=== PATIENT | female | born 1980 | race Caucasian/White ===

== ENCOUNTER 2016-12-28 18:00 | Emergency (ER) | payer OTHER ==
[~2016-12-28] VITALS: Ht 152.4 cm; Wt 95.4 kg
[~2016-12-28 18:00] MED LIST: ABL5 PO; ALPR-385 PO; CIPR-255 PO; CRY28 PO; IBUP-1050 PO; LAMO150T32 PO; NRN100 PO; ZOLP10TA PO
[2016-12-28 18:13] VITALS: TEMP 36.9; Ht 152.4 cm; Wt 95.4 kg
[2016-12-28 18:46] VITALS: O2SAT 96
[2016-12-28] MEDS ORDERED: ONDANSETRON INJ 2 MG/ML 2 ML VIAL IV STA (18:49)
[2016-12-28 18:59] LABS: BASO % 0.2 %; BASO ABS # 0.02 K/uL (0-0.2); COMPLETE YES; EOS % 2.3 %; HEMATOCRIT 43.8 % (37-47); IG% 0.1 %; LYMPH % 24.6 %; LYMPH ABS # 2.73 K/uL (1.2-3.4); MEAN CORPUSCULAR HEMOGLOBIN 32.5 pg (25-34); MEAN CORPUSCULAR HGB CONC 36.5 g/dl (32-36); MEAN PLATELET VOLUME 10.9 fL (7.4-10.4); MONO % 7.3 %; NEUT % 65.5 %; PLATELET COUNT 352 K/uL (130-400); RED BLOOD COUNT 4.92 M/uL (4.2-5.4); WHITE BLOOD COUNT 11.08 K/uL (4.8-10.8)
[2016-12-28] MEDS ORDERED: FENTANYL CITRATE INJ 50 MCG/1 ML 2 ML VIAL IV ONE (19:00)
[2016-12-28] MEDS ORDERED: LITH150C6 PO (19:04)
[2016-12-28 19:08] LABS: INR 0.9 (0.9-1.1); PARTIAL THROMBOPLASTIN RATIO 1.2
[2016-12-28 19:11] LABS: ALT/SGPT 25 U/L (12-78); AST/SGOT 17 U/L (15-37); BLOOD UREA NITROGEN 10 mg/dl (7-18); BUN/CREATININE RATIO 14.5 (10-20); CALCIUM 9.3 mg/dl (8.5-10.1); CARBON DIOXIDE 26 mmol/L (21-32); CHLORIDE 105 mmol/L (98-107); CREATININE 0.72 mg/dl (0.60-1.20); GLUCOSE 83 mg/dl (70-99); SODIUM 140 mmol/L (136-145)
[2016-12-28 19:14] LABS: ALKALINE PHOSPHATASE 72 U/L (45-117)
--- NOTE | 2016-12-28 19:32 | DIAGNOSTIC IMAGING REPORT ---
CT HEAD WITHOUT CONTRAST (CT) CLINICAL HISTORY: Change in mental status SUSPECTED STROKE COMPARISON STUDY: 04/27/2016 TECHNIQUE: Axial CT of the brain is performed from the vertex to the skull base. IV contrast was not administered for this examination. CT DOSE: 537.48 mGy.cm FINDINGS: No intra or extra-axial mass lesions are visualized. There is no CT evidence of acute cortical infarction. There is no evidence of midline shift. There is no acute hemorrhage. No calvarial fractures are visualized. There is no evidence of pathologic ventricular dilatation. There is moderate mucosal thickening/fluid in the left sphenoid. Multiple ethmoid air cells are opacified. There is bilateral maxilla sinus mucosal disease. There is frontal sinus mucosal thickening/fluid. IMPRESSION: 1. Pansinus disease 2. No acute intracranial findings. Electronically signed by: Marcello Rodrigues M.D. 12/28/2016 7:31 PM Dictated Date/Time: 12/28/2016 7:29 PM
[2016-12-28 20:09] LABS: URINE APPEARANCE CLEAR (CLEAR); URINE BILIRUBIN NEG (NEG); URINE COLOR YELLOW; URINE EPITHELIAL CELL AUTO >30 /lpf (0-5); URINE NITRITE NEG (NEG); URINE PH 7.5 (4.5-7.5); URINE SPECIFIC GRAVITY 1.012 (1.000-1.030); UROBILINOGEN NEG (NEG)
[2016-12-28 20:15] LABS: MANUAL MICROSCOPIC REQUIRED? NO; REVIEW REQ? NO
[2016-12-28] MEDS ORDERED: DOXYCYCLINE HYCLATE 100 MG CAP PO ONE (20:15)
[2016-12-28] MEDS ORDERED: DOXY100C2 PO (20:17)
[2016-12-28 20:33] LABS: BENZODIAZEPINE, URINE NEG (NEG); COCAINE,URINE NEG (NEG); PHENCYCLIDINE, URINE NEG (NEG)
[2016-12-28 20:41] VITALS: BP 103/56; PULSE 62; O2SAT 98
--- NOTE | 2016-12-28 22:17 | EMERGENCY ROOM VISIT NOTE ---
History Report prepared by Sauloibpankaj: Alba Avalos Under the Supervision of: Dr. Keshawn Schmidt M.D. First contact with patient: 18:38 Chief Complaint: SEIZURE Stated Complaint: HAD SEIZURE, ARM FEELS LIKE IT HAS WEIGHT ON IT History of Present Illness The patient is a 36 year old female who presents to the Emergency Room with complaints of a seizure that occurred tonight about an hour ago. The patient has a history of epileptic seizures and pseudo seizures. Her last seizure prior to today was 3 months ago. Per patient's significant other, the patient was sitting up in bed and started complaining of seeing spots in her eyes and felt like she was about to have a seizure. She laid down and shortly after started seizing. Her significant other notes that she was shaking in her bed and convulsing. Her seizure-like activity seemed to resolve after about 5 minutes. The patient had an episode of vomiting after the seizure. She was very confused afterwards and per significant other, still currently seems sightly out of it. The patient reports that she was slightly incontinent of urine. Currently, she complains of a headache, which is typical of how she feels after her seizures. She also complains of left arm heaviness. Her fianc talk to her mother who is a nurse who recommended she come here to evaluate for possible stroke because of her left arm symptoms. The patient is on Lamictal and [place] and has been compliant with her medications. She has not been sick recently. There is no chance of . Denies numbness or other complaints. She does not drink alcohol or use illicit drugs. Source of History: patient, spouse/significant other Onset: 1 hour ago Position: other (global) Quality: other (seizure) Timing: other (episode) Associated Symptoms: + headache, + vomiting, No numbness Note: Other symptoms: left arm heaviness, incontinence of urine, confusion Review of Systems See HPI for pertinent positives & negatives. A total of 10 systems reviewed and were otherwise negative. Past Medical & Surgical Medical Problems: (1) Altered mental status (2) Calculus of kidney and ureter (3) Endometriosis (4) Fracture of left ulna (5) Fracture of left ulna (6) Mantoux: positive (7) Methicillin resistant Staphylococcus aureus infection (8) Migraine (9) Neck pain (10) s/p (11) s/p colonoscopy (12) s/p laparoscopy (13) s/p tonsillectomy (14) Seizure (15) Seizure disorder (16) Seizures (17) Seizures (18) Sinusitis (19) Sphenoid sinusitis (20) Suicidal ideation (21) Syncope (22) Temporomandibular joint disorder (23) Tobacco dependence (24) Tobacco user Family History Diabetes mellitus GRANDFATHER (maternal) GRANDFATHER (paternal) GRANDMOTHER (maternal) GRANDMOTHER (paternal) FH: breast cancer Aunt (maternal) Aunt (paternal) Hypertension GRANDMOTHER (maternal) Social History Smoking Status: Current Every Day Smoker Alcohol Use: occasionally Drug Use: marijuana Marital Status: in relationship Housing Status: lives with family Occupation Status: disabled Current/Historical Medications Scheduled Doxycycline Hyclate (Vibramycin), 100 MG PO BID Ethinyl Estradiol/Norgestrel (Cryselle-28), 1 TAB PO DAILY Gabapentin (Gabapentin), 300 MG PO TID Scheduled PRN Ibuprofen (Advil), 200-600 MG PO Q4H PRN for Pain [place] Carbonate ([place] Carbonate), 150 MG PO for HS Zolpidem Tartrate (Ambien), 10 MG PO HS PRN for Sleep Allergies Coded Allergies: Clindamycin (Unverified Allergy, Severe, HIVES/TONGUE SWELLING, 10/25/16) Penicillins (Verified Allergy, Severe, RASH,BREATHING DIFFICULTY- CAN TAKE CEPHS., 10/25/16) Sulfa Antibiotics (Verified Allergy, Severe, HIVES/DIFFICULTY BREATHING ( TO SULFA DRUGS), 10/25/16) Tramadol (Unverified Allergy, Severe, HIVES, 10/25/16) Clarithromycin (Verified Allergy, Intermediate, HIVES-HAS TAKEN AZITHROMYCIN W/O PROBLEM, 10/25/16) Azithromycin (Verified Allergy, Unknown, RASH/ITCHINESS, 10/25/16) Fosphenytoin (Verified Allergy, Unknown, burning and itching all over, ) current and new found reaction in ed Ketorolac Tromethamine (Verified Allergy, Unknown, rash, 10/25/16) Valproic Acid (Verified Allergy, Unknown, Hair loss and weight gain., ) Reported by PT. Physical Exam Vital Signs Date Time Temp Pulse Resp B/P Pulse Ox O2 Delivery O2 Flow Rate FiO2 12/28/16 20:41 62 18 103/56 98 Room Air 12/28/16 19:12 68 12/28/16 19:00 88 16 111/76 93 Room Air 12/28/16 18:46 96 Room Air 12/28/16 18:13 36.9 71 18 138/81 96 Room Air Physical Exam Constitutional: Vital signs reviewed. Eyes: Pupils are equal round reactive to light. Conjunctiva are noninjected. ENT: Pharynx is clear without erythema or exudate. Mucous membranes are moist. Neck supple without meningeal signs. Respiratory: Clear to auscultation bilaterally. Breath sounds are equal bilaterally. Cardiovascular: Regular rate and rhythm. No rubs or gallops. GI: Soft, nondistended and nontender. Bowel sounds are present. Musculoskeletal: No peripheral edema. No lower extremity tenderness. Integumentary: No cyanosis. Neurological: The patient is awake and alert. Cranial nerves II-XII are intact. Motor is 5 out of 5 all extremities. Sensation is intact to light touch all extremities. Normal speech. No pronator drift. Psychiatric: Very anxious affect. Medical Decision & Procedures ER Provider Diagnostic Interpretation: CT results as stated below per my review and radiologist interpretation. CT HEAD WITHOUT CONTRAST (CT) CLINICAL HISTORY: Change in mental status SUSPECTED STROKE COMPARISON STUDY: 04/27/2016 TECHNIQUE: Axial CT of the brain is performed from the vertex to the skull base. IV contrast was not administered for this examination. CT DOSE: 537.48 mGy.cm FINDINGS: No intra or extra-axial mass lesions are visualized. There is no CT evidence of acute cortical infarction. There is no evidence of midline shift. There is no acute hemorrhage. No calvarial fractures are visualized. There is no evidence of pathologic ventricular dilatation. There is moderate mucosal thickening/fluid in the left sphenoid. Multiple ethmoid air cells are opacified. There is bilateral maxilla sinus mucosal disease. There is frontal sinus mucosal thickening/fluid. IMPRESSION: 1. Pansinus disease 2. No acute intracranial findings. Electronically signed by: Marcello Rodrigues M.D. 12/28/2016 7:31 PM Dictated Date/Time: 12/28/2016 7:29 PM Laboratory Results 12/28/16 18:40 Red Blood Count 4.92, Mean Corpuscular Volume 89.0, Mean Corpuscular Hemoglobin 32.5, Mean Corpuscular Hemoglobin Concent 36.5, Mean Platelet Volume 10.9, Neutrophils (%) (Auto) 65.5, Lymphocytes (%) (Auto) 24.6, Monocytes (%) (Auto) 7.3, Eosinophils (%) (Auto) 2.3, Basophils (%) (Auto) 0.2, Neutrophils # (Auto) 7.26, Lymphocytes # (Auto) 2.73, Monocytes # (Auto) 0.81, Eosinophils # (Auto) 0.25, Basophils # (Auto) 0.02 12/28/16 18:40 Test 12/28/16 18:40 12/28/16 19:46 White Blood Count 11.08 K/uL (4.8-10.8) Red Blood Count 4.92 M/uL (4.2-5.4) Hemoglobin 16.0 g/dL (12.0-16.0) Hematocrit 43.8 % (37-47) Mean Corpuscular Volume 89.0 fL (80-100) Mean Corpuscular Hemoglobin 32.5 pg (25-34) Mean Corpuscular Hemoglobin Concent 36.5 g/dl (32-36) Platelet Count 352 K/uL (130-400) Mean Platelet Volume 10.9 fL (7.4-10.4) Neutrophils (%) (Auto) 65.5 % Lymphocytes (%) (Auto) 24.6 % Monocytes (%) (Auto) 7.3 % Eosinophils (%) (Auto) 2.3 % Basophils (%) (Auto) 0.2 % Neutrophils # (Auto) 7.26 K/uL (1.4-6.5) Lymphocytes # (Auto) 2.73 K/uL (1.2-3.4) Monocytes # (Auto) 0.81 K/uL (0.11-0.59) Eosinophils # (Auto) 0.25 K/uL (0-0.5) Basophils # (Auto) 0.02 K/uL (0-0.2) RDW Standard Deviation 40.6 fL (36.4-46.3) RDW Coefficient of Variation 12.6 % (11.5-14.5) Immature Granulocyte % (Auto) 0.1 % Immature Granulocyte # (Auto) 0.01 K/uL (0.00-0.02) Prothrombin Time 10.0 SECONDS (9.0-12.0) Prothromb Time International Ratio 0.9 (0.9-1.1) Activated Partial Thromboplast Time 31.8 SECONDS (21.0-31.0) Partial Thromboplastin Ratio 1.2 Anion Gap 9.0 mmol/L (3-11) Est Creatinine Clear Calc Drug Dose 112.7 ml/min Estimated GFR () 125.8 Estimated GFR (Non- 108.5 BUN/Creatinine Ratio 14.5 (10-20) Calcium Level 9.3 mg/dl (8.5-10.1) Total Bilirubin 0.3 mg/dl (0.2-1) Direct Bilirubin < 0.1 mg/dl (0-0.2) Aspartate Amino Transf (AST/SGOT) 17 U/L (15-37) Alanine Aminotransferase (ALT/SGPT) 25 U/L (12-78) Alkaline Phosphatase 72 U/L (45-117) Total Protein 8.1 gm/dl (6.4-8.2) Albumin 3.9 gm/dl (3.4-5.0) [place] Level < 0.2 mMOL/L (0.6-1.2) Urine Color YELLOW Urine Appearance CLEAR (CLEAR) Urine pH 7.5 (4.5-7.5) Urine Specific [place] 1.012 (1.000-1.030) Urine Protein NEG (NEG) Urine Glucose (UA) NEG (NEG) Urine Ketones NEG (NEG) Urine Occult Blood 1+ (NEG) Urine Nitrite NEG (NEG) Urine Bilirubin NEG (NEG) Urine Urobilinogen NEG (NEG) Urine Leukocyte Esterase TRACE (NEG) Urine WBC (Auto) 1-5 /hpf (0-5) Urine RBC (Auto) 5-10 /hpf (0-4) Urine Hyaline Casts (Auto) 0 /lpf (0-5) Urine Epithelial Cells (Auto) >30 /lpf (0-5) Urine Bacteria (Auto) NEG (NEG) Urine Opiates Screen NEG (NEG) Urine Methadone, Qualitative NEG (NEG) Urine Barbiturates NEG (NEG) Urine Phencyclidine (PCP) Level NEG (NEG) Ur Amphetamine/Methamphetamine NEG (NEG) MDMA (Ecstasy) Screen NEG (NEG) Urine Benzodiazepines Screen NEG (NEG) Urine Cocaine Metabolite NEG (NEG) Urine Marijuana (THC) NEG (NEG) Laboratory results as reviewed by me. Medications Administered Medications (Trade) Dose Ordered Sig/Bebeto Route Start Time Stop Time Status Last Admin Dose Admin Fentanyl Citrate (Fentanyl Inj) 50 mcg NOW ONCE IV 12/28/16 19:00 12/28/16 19:02 DC 12/28/16 19:07 50 MCG Ondansetron HCl (Zofran Inj) 4 mg NOW STAT IV 12/28/16 18:49 12/28/16 18:52 DC 12/28/16 19:06 4 MG Doxycycline Hyclate (Vibramycin Cap) 100 mg ONE ONCE PO 12/28/16 20:15 12/28/16 20:16 DC 12/28/16 20:41 100 MG ECG Indication: other (seizure) Rate (beats per minute): 81 Rhythm: normal sinus Findings: no acute ischemic change, no ectopy, other (limited interpretation due to artifact) ED Course 1842: The patient was evaluated in room C1. A complete history and physical exam was performed. 1899: Ordered Zofran Inj 4 mg IV, Fentanyl Inj 50 mcg IV. 2005: I talked to her about test results. She is feeling better. She says that her left arm feels stiff and she feels like she may have pulled something during her seizure. 2009: I discussed the case with [place]. Mao, [facility]. She said that the patient does not need any adjustments to her medications. She requested to have a Lamictal level sent and she will have Dr. Cast check it next week. 2015: Ordered Vibramycin Cap 100 mg PO. Medical Decision This is a 36-year-old female presents with a seizure, headache and left arm discomfort. Differential diagnosis includes breakthrough seizure, pseudoseizure , intracranial mass, intracranial hemorrhage, epilepsy, medication noncompliance , strain. I did perform a limited focused review of portions of the patient's old chart on the electronic medical record. The patient had status epilepticus March of last year and was admitted to the hospital. She has a history of polysubstance abuse. She had a negative EEG and CT scan of the head. I did evaluate the patient as noted above. The patient has a history of seizures and pseudoseizures. She states that she felt like she had an epileptic seizure today. It was witnessed by her fianc. She does complain of a headache but states that she usually gets headaches after a seizure. She has been compliant with her medications. She states that her left arm feels heavy and after talking to her mother, who is a nurse, she came here to evaluate for possible stroke. On examination she is neurologically intact without any deficits. IV access was established. The patient was placed on a continuous patient monitor. I did treat the patient with IV fentanyl and Zofran. I did order and personally review the patient's 12-lead EKG as described above. I did order and review the patient's blood work as noted in the electronic medical record. I did order a CT of the head. I did review the images myself as well as the radiology report as described above. There is no evidence of bleed or CVA. She does appear to have pansinusitis. She does state that she has had a previous history of 2 sinus surgeries. I did recommend antibiotic treatment and treated her with doxycycline. I did reassess patient. She is feeling better at this time. Her headache is improved. Her arm symptoms are improved and she states it feels more like the arm is stiff and believes that it is likely from the seizure activity itself. She has no numbness or weakness in her extremities. I did discuss the case with Dr. Oates who did not recommend any change in her seizure medications. I did order a Lamictal level which will be followed up by her neurologist next week. The patient was discharged in good condition. She was given a prescription for doxycycline. Consults Time Called: 1999 Consulting Physician: Dr. Mao, [facility] Returned Call: 2009 I discussed the case with her. She said that the patient does not need any adjustments to her medications. She requested to have a Lamictal level sent and she will have Dr. Cast check it next week. Impression Primary Impression: Seizure Additional Impression: Sinusitis Scribe Attestation The scribe's documentation has been prepared under my direct and personally reviewed by me in its entirety. I confirm that the note above accurately reflects all work, treatment, procedures, and medical decision making performed by me. Departure Information Dispostion Home / Self-Care Prescriptions Doxycycline Hyclate (VIBRAMYCIN) 100 Mg Cap 100 MG PO BID for 10 Days, #20 CAP Prov: Keshawn Schmidt M.D. 12/28/16 Patient Instructions ED Seizure Recurrent, ED Sinusitis Abx Tx, My [facility] Additional Instructions You have been examined and treated today on an emergency basis only. This is not a substitute for, or an effort to provide, complete comprehensive medical care. It is impossible to recognize and treat all injuries or illnesses in a single emergency department visit. It is therefore important that you follow up closely with your physician and neurologist. Call as soon as possible for an appointment. Return for worsening symptoms or if you develop fever, vomiting, loss of strength or sensation on one side of your body or any other concerning symptoms. Problem Qualifiers Additional Impression: Sinusitis Sinusitis location: pansinusitis Chronicity: acute Recurrence: not specified as recurrent Qualified Codes: J01.40 - Acute pansinusitis, unspecified
== END 2016-12-28 20:45 | disposition home or self-care (01) ==
LOC: C.EDB 18:03 → C.EDC 20:45
DX: G40.909 Epilepsy, unspecified, not intractable, without status epilepticus (principal); J32.9 Chronic sinusitis, unspecified; R51 Headache; R11.10 Vomiting, unspecified; M79.602 Pain in left arm; Z79.3 Long term (current) use of hormonal contraceptives; Z79.899 Other long term (current) drug therapy; Z88.0 Allergy status to penicillin; Z88.1 Allergy status to other antibiotic agents; Z88.2 Allergy status to sulfonamides; Z88.6 Allergy status to analgesic agent; Z88.8 Allergy status to other drugs, medicaments and biological substances; Z86.14 Personal history of Methicillin resistant Staphylococcus aureus infection; Z87.828 Personal history of other (healed) physical injury and trauma; Z80.3 Family history of malignant neoplasm of breast; Z82.49 Family history of ischemic heart disease and other diseases of the circulatory system; Z83.3 Family history of diabetes mellitus; F17.200 Nicotine dependence, unspecified, uncomplicated

== ENCOUNTER 2017-02-21 00:23 | Emergency (ER) | payer OTHER ==
[~2017-02-21] VITALS: Ht 152.4 cm; Wt 90.3 kg
[~2017-02-21 00:23] MED LIST changes: -ABL5 PO; -ALPR-385 PO; -CIPR-255 PO; +DOXY100C2 PO; -LAMO150T32 PO; +LITH150C6 PO
[2017-02-21 00:29] VITALS: TEMP 36.5; Ht 152.4 cm; Wt 90.3 kg
[2017-02-21] MEDS ORDERED: HYDROmorphone INJ 1 MG/ML SYR IV STA ×2 (00:52→02:49)
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
[2017-02-21 01:02] LABS: HEMATOCRIT 40.9 % (37-47); MEAN CELL VOLUME 88.3 fL (80-100); MEAN CORPUSCULAR HGB CONC 36.2 g/dl (32-36); MEAN PLATELET VOLUME 11.2 fL (7.4-10.4); PLATELET COUNT 311 K/uL (130-400); RED BLOOD COUNT 4.63 M/uL (4.2-5.4); WHITE BLOOD COUNT 9.87 K/uL (4.8-10.8)
[2017-02-21] MEDS ORDERED: OPTIRAY 320 IV PRN (01:15)
[2017-02-21 01:18] LABS: BUN/CREATININE RATIO 22.6 (10-20); CALCIUM 8.6 mg/dl (8.5-10.1); CREATININE 0.68 mg/dl (0.60-1.20); POTASSIUM 3.4 mmol/L (3.5-5.1)
[2017-02-21] MEDS ORDERED: GABA1CAP4 PO (02:58)
[2017-02-21] MEDS ORDERED: LAMO150T32 PO (02:58)
[2017-02-21] MEDS ORDERED: CLON1TAB3 PO (02:58)
[2017-02-21] MEDS ORDERED: LOW OGESTREL PO (02:59)
[2017-02-21 03:03] VITALS: BP 115/65; PULSE 74; O2SAT 100
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
--- NOTE | 2017-02-21 08:27 | DIAGNOSTIC IMAGING REPORT ---
CT OF THE LUMBAR SPINE CLINICAL HISTORY: Trauma. TECHNIQUE: Axial images of the lumbar spine were obtained. Sagittal and coronal reconstructions were viewed. COMPARISON STUDY: CT of the lumbar spine February 25, 2015. FINDINGS: Grade I anterolisthesis of L5 on S1 due to bilateral L5 pars defect is unchanged since CT of February 25, 2015. There is no acute lumbar spine fracture. Vertebral body heights are maintained. Central canal and neural foramen are suboptimally assessed by CT. IMPRESSION: 1. No acute lumbar spine fracture or subluxation. 2. No change in grade I anterolisthesis of L5 on S1 due to bilateral L5 pars defects since CT of February 25, 2015. Electronically signed by: Jf Wilkinson M.D. 02/21/2017 8:26 AM Dictated Date/Time: 02/21/2017 8:24 AM
--- NOTE | 2017-02-21 08:47 | DIAGNOSTIC IMAGING REPORT ---
LEFT FOOT MIN 3 VIEWS ROUTINE CLINICAL HISTORY: Trauma. COMPARISON: Left foot radiographs November 19, 2015. FINDINGS: The tarsometatarsal joints are intact. No acute fracture within the left foot is identified. IMPRESSION: No acute fracture or dislocation of the left foot. Electronically signed by: Jf Wilkinson M.D. 02/21/2017 8:46 AM Dictated Date/Time: 02/21/2017 8:44 AM
== END 2017-02-21 03:08 | disposition home or self-care (01) ==
LOC: C.EDB 00:25 → C.EDC 03:08
DX: S70.02XA Contusion of left hip, initial encounter (principal); W23.0XXA Caught, crushed, jammed, or pinched between moving objects, initial encounter; Z87.442 Personal history of urinary calculi; G40.909 Epilepsy, unspecified, not intractable, without status epilepticus; F17.210 Nicotine dependence, cigarettes, uncomplicated; Z83.3 Family history of diabetes mellitus; Z82.49 Family history of ischemic heart disease and other diseases of the circulatory system; Z80.3 Family history of malignant neoplasm of breast; Z79.899 Other long term (current) drug therapy

== ENCOUNTER 2017-07-06 23:58 | Emergency (ER) | payer OTHER ==
[~2017-07-06] VITALS: Ht 157.5 cm; Wt 80.1 kg
[~2017-07-06 23:58] MED LIST changes: +CLON1TAB3 PO; -CRY28 PO; -DOXY100C2 PO; +GABA1CAP4 PO; -IBUP-1050 PO; +LAMO150T32 PO; +LOW OGESTREL PO; -NRN100 PO
[2017-07-07] VITALS: BP 159/90; TEMP 37.1; O2SAT 98; Ht 157.5 cm; Wt 80.1 kg
[2017-07-07 00:07] VITALS: PULSE 86
[2017-07-07] MEDS ORDERED: SODIUM CHLORIDE 0.9% 1000ML 1,000 ML IV STA (00:12)
[2017-07-07] MEDS ORDERED: SODIUM CHLORIDE 0.9% 1000ML 500 ML IV STA (00:12)
[2017-07-07] MEDS ORDERED: ACETAMINOPHEN 500 MG TAB PO STA (00:21)
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
[2017-07-07] MEDS ORDERED: NRN800 PO (00:34)
== END 2017-07-07 00:33 | disposition left against medical advice (07) ==
LOC: EDBD 23:58 → C.EDA 07-07 00:01
DX: R56.9 Unspecified convulsions (principal); G44.309 Post-traumatic headache, unspecified, not intractable; M26.609 Unspecified temporomandibular joint disorder, unspecified side; Z83.3 Family history of diabetes mellitus; Z82.49 Family history of ischemic heart disease and other diseases of the circulatory system; F17.200 Nicotine dependence, unspecified, uncomplicated; F12.90 Cannabis use, unspecified, uncomplicated; G40.909 Epilepsy, unspecified, not intractable, without status epilepticus

== ENCOUNTER 2018-02-16 19:12 | Emergency (ER) | payer OTHER ==
[~2018-02-16] VITALS: Ht 162.6 cm; Wt 85.0 kg
[~2018-02-16 19:12] MED LIST changes: -GABA1CAP4 PO; +LAMO150T PO; -LAMO150T32 PO; +NRN800 PO
[2018-02-16 19:21] VITALS: TEMP 36.5; Ht 162.6 cm; Wt 85.0 kg
[2018-02-16] MEDS: SODIUM CHLORIDE 0.9% 1000ML 1,000 ML IV ONE (19:30)
[2018-02-16] MEDS ORDERED: DiphenhydrAMINE HCL 50 MG/ML VIAL IV STA (19:34)
[2018-02-16] MEDS ORDERED: PROCHLORPERAZINE INJ 10 MG in SYRINGE 8 ML IV STA (19:34)
[2018-02-16 19:36] LABS: BASO % 0.2 %; BASO ABS # 0.02 K/uL (0-0.2); EOS % 0.8 %; EOS ABS # 0.07 K/uL (0-0.5); HEMATOCRIT 40.8 % (37-47); HEMOGLOBIN 14.3 g/dL (12.0-16.0); IG# 0.02 K/uL (0.00-0.02); LYMPH % 17.9 %; LYMPH ABS # 1.57 K/uL (1.2-3.4); MEAN CELL VOLUME 90.9 fL (80-100); MEAN CORPUSCULAR HEMOGLOBIN 31.8 pg (25-34); MEAN PLATELET VOLUME 9.6 fL (7.4-10.4); MONO % 7.8 %; MONO ABS # 0.68 K/uL (0.11-0.59); NEUT % 73.1 %; NEUT ABS # 6.39 K/uL (1.4-6.5); PLATELET COUNT 361 K/uL (130-400); RED CELL DISTRIBUTION WIDTH CV 13.7 % (11.5-14.5); RED CELL DISTRIBUTION WIDTH SD 45.1 fL (36.4-46.3); WHITE BLOOD COUNT 8.75 K/uL (4.8-10.8)
[2018-02-16] MEDS ORDERED: PROCHLORPERAZINE 5 MG/ML 2 ML VIAL ONE (19:39)
[2018-02-16] MEDS ORDERED: DEXAMETHASONE **PF** INJ 10 MG/ML VIAL ONE (19:39)
--- NOTE | 2018-02-16 19:43 | EMERGENCY ROOM VISIT NOTE ---
History First contact with patient: 19:17 Chief Complaint: HYPOGLYCEMIA Stated Complaint: SEIZURE, HYPOGLYCEMIA Nursing Triage Summary: pt arrives s/p seizure? via ALS per ALS pt has HX of seizures but today she has had fluctatuing sugars she has attempted eating and drinking to maintain BSG but reports sugar has maintained low per ALS crew patient had a BSG of 55 on arrival to home, she attempted to eat with no increase to sugar per ALS crew patient was able to walk to litter from home They state in transport she became lethargic and started complaining of a headache she arrives to the ER complaining of headache, some slurred speech and increased lethargy History of Present Illness The patient is a 37 year old female who presents to the Emergency Room with complaints of syncope and low blood sugar.. The patient states that approximately 2 hours ago the patient was in her usual state of health. She was with one of her friends when she reports only feeling lightheadedness. And then passing out. She states she is on the ground for a few moments. When she woke up she states that she is not confused but felt quite hot and states that she was having "hot flashes". The patient thinks she may have hit her head but states that this is not new for her when she has her seizures. However was most concerning to her was that while she was on the ground she is not having her usual seizure type movements. This time she was just passed out, was with her usual seizures there is some myoclonic activity. When she came to, her friend of his diabetes checked her blood sugar which was noted to be 70. He waited for a few minutes and then they checked it again because she was not feeling better, was reported to be "lower". The patient denies having had any focal neurological symptoms including focal weakness, or changes in sensation. She did not have any double vision or blurred vision at the time. She denies any tinnitus, hearing changes. She does not have any difficulty swallowing. She has not had any issues with speech , or comprehension. At this time the patient states she has an intense headache. She denies it is the worst headache she has ever had. It does remind her of her usual migraines. States she is having some sensitivity to light. She denies any recent constitutional symptoms or signs of infection such as fever, chills, sweats. She has been eating and drinking normally. She has not had any voiding issues with abdominal pain, nausea or vomiting, diarrhea or constipation. Has been urinating without any difficulties. Review of Systems A 10 point review of systems was negative unless stated above. Past Medical/Surgical History Medical Problems: (1) Altered mental status (2) Calculus of kidney and ureter (3) Endometriosis (4) Fracture of left ulna (5) Fracture of left ulna (6) Mantoux: positive (7) Methicillin resistant Staphylococcus aureus infection (8) Migraine (9) Neck pain (10) s/p (11) s/p colonoscopy (12) s/p laparoscopy (13) s/p tonsillectomy (14) Seizure (15) Seizure disorder (16) Seizures (17) Seizures (18) Sinusitis (19) Sphenoid sinusitis (20) Suicidal ideation (21) Syncope (22) Temporomandibular joint disorder (23) Tobacco dependence (24) Tobacco user Family History Diabetes mellitus GRANDFATHER (maternal) GRANDFATHER (paternal) GRANDMOTHER (maternal) GRANDMOTHER (paternal) FH: breast cancer Aunt (maternal) Aunt (paternal) Hypertension GRANDMOTHER (maternal) Social History Smoking Status: Current Every Day Smoker Alcohol Use: occasionally Drug Use: marijuana Marital Status: in relationship Housing Status: lives with family Occupation Status: disabled Current/Historical Medications Scheduled Control Pills ( Control Pills), 1 TAB PO DAILY Duloxetine HCl (Duloxetine HCl), 60 MG PO QAM Gabapentin (Gabapentin), 800 MG PO TID Lamotrigine (Lamictal), 150 MG PO BID [place] Carbonate ([place] Carbonate), 300 MG PO BID Scheduled PRN Clonazepam (Klonopin), 1 MG PO TID PRN for Anxiety Zolpidem Tartrate (Ambien), 10 MG PO HS PRN for Sleep Allergies as noted in EMR Physical Exam Vital Signs Date Time Temp Pulse Resp B/P (MAP) Pulse Ox O2 Delivery O2 Flow Rate FiO2 02/16/18 20:57 80 16 126/64 100 Room Air 02/16/18 19:21 36.5 84 18 138/73 97 Room Air Pain Rating (0-10): 10 Physical Exam Constitutional: Vital signs as above were reviewed. General Inspection: Patient appears diaphoretic. Eyes: Pupils equal, round, and reactive to light. Extraocular muscles are intact. No proptosis. No photophobia. ENT: Mucous membranes are moist. Oropharynx is clear. No sinus tenderness. TMs are clear bilaterally. Cardiovascular: Heart with a regular rate and rhythm. Pulses are palpable and symmetric in all 4 extremities. No pedal edema appreciated. Respiratory: Lungs clear to auscultation bilaterally. No wheezes, rales, or rhonchi appreciated. No accessory muscle use. No retractions. No increased work of breathing. GI: Abdomen soft, nontender, nondistended. Normal active bowel sounds. No abdominal hernias appreciated. No rebound. No guarding. : No CVA tenderness appreciated. Musculoskeletal: No midline cervical or vertebral tenderness. No gross deformities. No bony tenderness. No calf swelling or tenderness. Integumentary: Warm, dry, no rashes appreciated. Neurological: Patient awake, alert, and oriented x 3. Cranial nerves two through 12 grossly intact. Motor 5 out of 5 strength bilateral upper and lower extremities. Normal coordination No pronator drift Lymph: No cervical lymphadenopathy appreciated. Medical Decision & Procedures ER Provider Diagnostic Interpretation: HEAD WITHOUT CONTRAST (CT) CLINICAL HISTORY: 37 years-old Female with LOC, seizure different from usual seizure. Acute loss of consciousness with seizure TECHNIQUE: Multiple axial CT images of the head were obtained without contrast. A dose lowering technique was utilized adhering to the principles of ALARA. CT DOSE: 601.98 mGy.cm COMPARISON: Head CT 12/28/2016. FINDINGS: No acute intracranial hemorrhage, midline shift, intracranial mass, hydrocephalus, territorial ischemia or abnormal extra-axial collection. The calvarium is intact. The mastoid air cells, and middle ear cavities are clear. Mild to moderate mucosal thickening of the ethmoid air cells and maxillary sinuses. Soft tissues and orbits are unremarkable. IMPRESSION: 1. No acute intracranial abnormality. 2. Paranasal sinus disease. The above report was generated using voice recognition software. It may contain grammatical, syntax or spelling errors. Electronically signed by: Benson Bernstein M.D. 02/16/2018 8:07 PM Dictated Date/Time: 02/16/2018 8:04 PM The status of this report is Signed. Draft = Not yet reviewed or approved by Radiologist. Signed = Reviewed and approved by Radiologist. Laboratory Results 02/16/18 19:20 Red Blood Count 4.49, Mean Corpuscular Volume 90.9, Mean Corpuscular Hemoglobin 31.8, Mean Corpuscular Hemoglobin Concent 35.0, Mean Platelet Volume 9.6, Neutrophils (%) (Auto) 73.1, Lymphocytes (%) (Auto) 17.9, Monocytes (%) (Auto) 7.8, Eosinophils (%) (Auto) 0.8, Basophils (%) (Auto) 0.2, Neutrophils # (Auto) 6.39, Lymphocytes # (Auto) 1.57, Monocytes # (Auto) 0.68, Eosinophils # (Auto) 0.07, Basophils # (Auto) 0.02 02/16/18 19:20 Test 02/16/18 19:20 02/16/18 20:05 White Blood Count 8.75 K/uL (4.8-10.8) Red Blood Count 4.49 M/uL (4.2-5.4) Hemoglobin 14.3 g/dL (12.0-16.0) Hematocrit 40.8 % (37-47) Mean Corpuscular Volume 90.9 fL (80-100) Mean Corpuscular Hemoglobin 31.8 pg (25-34) Mean Corpuscular Hemoglobin Concent 35.0 g/dl (32-36) Platelet Count 361 K/uL (130-400) Mean Platelet Volume 9.6 fL (7.4-10.4) Neutrophils (%) (Auto) 73.1 % Lymphocytes (%) (Auto) 17.9 % Monocytes (%) (Auto) 7.8 % Eosinophils (%) (Auto) 0.8 % Basophils (%) (Auto) 0.2 % Neutrophils # (Auto) 6.39 K/uL (1.4-6.5) Lymphocytes # (Auto) 1.57 K/uL (1.2-3.4) Monocytes # (Auto) 0.68 K/uL (0.11-0.59) Eosinophils # (Auto) 0.07 K/uL (0-0.5) Basophils # (Auto) 0.02 K/uL (0-0.2) RDW Standard Deviation 45.1 fL (36.4-46.3) RDW Coefficient of Variation 13.7 % (11.5-14.5) Immature Granulocyte % (Auto) 0.2 % Immature Granulocyte # (Auto) 0.02 K/uL (0.00-0.02) Anion Gap 5.0 mmol/L (3-11) Est Creatinine Clear Calc Drug Dose 108.0 ml/min Estimated GFR () 117.0 Estimated GFR (Non- 100.9 BUN/Creatinine Ratio 17.3 (10-20) Calcium Level 9.5 mg/dl (8.5-10.1) Magnesium Level 2.2 mg/dl (1.8-2.4) [place] Level 1.2 mMOL/L (0.6-1.2) Bedside Glucose 61 mg/dl (70-90) Medications Administered Medications (Trade) Dose Ordered Sig/Bebeto Route Start Time Stop Time Status Last Admin Dose Admin Sodium Chloride 1,000 ml @ 999 mls/hr Q1H1M ONCE IV 02/16/18 19:30 02/16/18 20:30 DC 02/16/18 19:30 999 MLS/HR Diphenhydramine HCl (Benadryl Inj) 12.5 mg NOW STAT IV 02/16/18 19:34 02/16/18 19:37 DC 02/16/18 19:34 12.5 MG Prochlorperazine Edisylate (Compazine Inj) 10 mg STK-MED ONCE .ROUTE 02/16/18 19:39 02/16/18 19:40 DC 02/16/18 19:39 10 MG Dexamethasone Sodium Phosphate (Dexamethasone Inj Pf) 10 mg STK-MED ONCE .ROUTE 02/16/18 19:39 02/16/18 19:40 DC 02/16/18 19:39 10 MG Clonazepam (Klonopin Tab) 1 mg TODAY@2014 ONCE PO 02/16/18 20:15 02/16/18 20:16 DC 02/16/18 20:15 1 MG Potassium Chloride (Klor-Con Tab) 40 meq NOW STAT PO 02/16/18 20:06 02/16/18 20:11 DC 02/16/18 20:06 40 MEQ ED Course 19:20 - Patient was seen and assessed by me in the room. Full history and examination was performed. 19:40 - Case reviewed with Dr. Lizama. [facility] Narc contract reviewed, the patient is not get narcotic medications CBC, BMP, serum Li, POC BSG CT brain Decadron 10 mg IV, Compazine 10 mg IV, Benadryl 12.5 mg IV 20:00 - Notified of BSG 21; patient remains alert and oriented; mentating well Advised to continue PO challenge as long as alert and awake Labs reviewed; K3.1; 40 meq oral KCl given 20:40 - BSG improved to 60 CT brain reviewed and negative. 20:45 -the results of the CT and labs were discussed with the patient Patient was reassessed and states she is feeling better. Her headache is remarkably improved.. 21:30 - Repeat BSG 55 Recommend continuing PO intake 22:30 - Repeat BSG 53 Upon reassessment the patient states that she feels well and is ready to go home. Patient states she has an appetite and feels that she can maintain p.o. keep going home Discussed discharge with the patient in close follow-up. Patient is agreeable. We will begin discharge paperwork. Medical Decision Patient is a 37-year-old female with a seizure disorder who presents with an episode of loss of consciousness. She was hypoglycemic on arrival. Her BMP blood sugar was 23. She did continue to mentate well throughout her ED admission despite a blood sugar 23. Because she was mentating appropriately, we encouraged her to take food by mouth as opposed to supplement her blood dextrose via the IV. We were able to get her blood sugars to recover to between 50 and 60. On reassessment several times the patient noted that she was feeling better. She was alert and oriented with no overt signs of encephalopathy. She did not have any seizures while here in the emergency room. On evaluation of her labs she is found to be mildly hypokalemic at 3.1. She is supplemented orally with potassium chloride. She did present with a severe headache. However this was in character with her previous migraine she states. She is treated with a migraine cocktail which included Decadron, IV Compazine, and IV Benadryl. The patient did get great relief from this combination. There are no focal neurological signs on her examination. However given the episode of syncope which was not in keeping with her usual seizures, CT scan of the brain was obtained which was fortunately normal. Based on her description during her loss of conscious episode (as stated in the collateral history by a friend who witnessed it) it does not appear that her loss of consciousness was seizure related. Given that the patient was alert and oriented, was able to keep food down by mouth, we felt it would be safe to discharge her home and have her try to maintain her blood sugars through vigorous oral intake. We cautioned her that juices such as apple juice and orange juice would be good in this endeavor. We did recommend that she follow closely with her PCP, to ensure that her blood sugars do remain stable in the coming days, and that her low potassium does not fact recover. Previous EMR notes that she does have a no narcotic contract with the hospital. In light of this I did consider the the possibility that this may be factitious insulin use. Though it will take several days to come back, I will order Insulin and C-peptide levels to inform on whether this may have been factitious insulin use. I discussed the results with the patient. She was agreeable to discharge home. She has agreed to follow-up with her primary care provider in the next 1-2 days. Head Trauma GCS Score: 15 Medication Reconcilliation Current Medication List: was personally reviewed by me Blood Pressure Screening Patient's blood pressure: Normal blood pressure Impression Primary Impression: Hypoglycemia Additional Impressions: Seizure disorder Hypokalemia Departure Information Dispostion Home / Self-Care Condition GOOD Referrals Felice Franco M.D. (PCP) Patient Instructions My [facility] Additional Instructions You came to the emergency room because of an episode of loss of consciousness. In addition to this you did have a headache. We did a CT scan which was fortunately negative. We treated with a migraine cocktail which seems to help. We did lab work on you which was overall normal. We noticed was a slightly low potassium level. We gave you some oral potassium here in the emergency room. You should contact your family physician and have this repeated a BMP within the next week to make sure that the potassium remains stable. When you came to the emergency room your blood sugar was quite low. We fed you food in the emergency room, and fortunately your blood sugar started to come up. This was likely the cause of your loss of consciousness rather than an episode of seizure. Her blood sugar was approximately 50 by the time of discharge. However you did state that he was starting to feel much better, and would be able to continue eating and drinking when going home. Based on her exam and reassessment, we felt that it would be safe to discharge her home and have you follow closely with your primary care provider When you go home we encourage you to try and maintain good fluid intake. If you do not want to eat solid foods, at least make sure that you maintain adequate fluid intake to prevent dehydration. Drinking juices like orange juice and apple juice will help with your blood sugars. Please try do this for the next 24-48 hours diligently. When you go home please continue your usual medications. If your symptoms fail to improve, acutely worsen, please seek medical attention immediately by either calling your primary care provider or going to your nearest emergency department. Otherwise, please see your primary care provider within 1-2 days to ensure that your symptoms continue to improve. They should reassess her, and make sure that your blood sugars are stable. It was a pleasure to be involved in your care and we wish you all the best. Problem Qualifiers
[2018-02-16] MEDS ORDERED: DEXAMETHASONE INJ 10 MG in SYRINGE 0 ML IV SCH (19:45)
[2018-02-16 19:59] LABS: CALCIUM 9.5 mg/dl (8.5-10.1); CREATININE 0.76 mg/dl (0.60-1.20); POTASSIUM 3.1 mmol/L (3.5-5.1)
[2018-02-16] MEDS ORDERED: POTASSIUM CHLORIDE 20 MEQ TABCR PO STA (20:06)
--- NOTE | 2018-02-16 20:08 | DIAGNOSTIC IMAGING REPORT ---
HEAD WITHOUT CONTRAST (CT) CLINICAL HISTORY: 37 years-old Female with LOC, seizure different from usual seizure. Acute loss of consciousness with seizure TECHNIQUE: Multiple axial CT images of the head were obtained without contrast. A dose lowering technique was utilized adhering to the principles of ALARA. CT DOSE: 601.98 mGy.cm COMPARISON: Head CT 12/28/2016. FINDINGS: No acute intracranial hemorrhage, midline shift, intracranial mass, hydrocephalus, territorial ischemia or abnormal extra-axial collection. The calvarium is intact. The mastoid air cells, and middle ear cavities are clear. Mild to moderate mucosal thickening of the ethmoid air cells and maxillary sinuses. Soft tissues and orbits are unremarkable. IMPRESSION: 1. No acute intracranial abnormality. 2. Paranasal sinus disease. The above report was generated using voice recognition software. It may contain grammatical, syntax or spelling errors. Electronically signed by: Benson Bernstein M.D. 02/16/2018 8:07 PM Dictated Date/Time: 02/16/2018 8:04 PM
[2018-02-16] MEDS ORDERED: CLONAZEPAM 0.5 MG TAB PO ONE (20:15)
[2018-02-16] MEDS ORDERED: POTASSIUM CHLORIDE 10 MEQ TABCR ONE (20:17)
[2018-02-16] MEDS ORDERED: LTH300C PO (21:02)
[2018-02-16] MEDS ORDERED: BCPILLS PO (21:02)
[2018-02-16] MEDS ORDERED: CYM60 PO (21:03)
--- NOTE | 2018-02-16 22:36 | EMERGENCY ROOM VISIT NOTE ---
History Report prepared by Shaggy: Franklyn Owusu Under the Supervision of: Dr. Alessio Lizama D.O. First contact with patient: 19:17 Chief Complaint: HYPOGLYCEMIA Stated Complaint: SEIZURE, HYPOGLYCEMIA Nursing Triage Summary: pt arrives s/p seizure? via ALS per ALS pt has HX of seizures but today she has had fluctatuing sugars she has attempted eating and drinking to maintain BSG but reports sugar has maintained low per ALS crew patient had a BSG of 55 on arrival to home, she attempted to eat with no increase to sugar per ALS crew patient was able to walk to litter from home They state in transport she became lethargic and started complaining of a headache she arrives to the ER complaining of headache, some slurred speech and increased lethargy History of Present Illness The patient is a 37 year old female who presents to the Emergency Room following a syncopal episode that occurred at 1700 this afternoon, 2.5 hours ago. The patient states that she felt dizzy/lightheaded before she had the episode that was witnessed by her friend. She has a history of seizures, but notes that this was not like her previous seizure episodes because she did not shake, per her friend. She is unsure for how long she was on the ground. Following the episode the patient developed an "intense" headache which feels similar to the migraines she has had in the past. She does not have any weakness currently. The patient denies having any history of diabetes. Source of History: patient Onset: 2.5 hours ago Position: head Quality: other (syncopal event. ) Timing: other (single resolved event) Associated Symptoms: + headache, No weakness Review of Systems See HPI for pertinent positives & negatives. A total of 10 systems reviewed and were otherwise negative. Past Medical & Surgical Medical Problems: (1) Altered mental status (2) Calculus of kidney and ureter (3) Endometriosis (4) Fracture of left ulna (5) Fracture of left ulna (6) Mantoux: positive (7) Methicillin resistant Staphylococcus aureus infection (8) Migraine (9) Neck pain (10) s/p (11) s/p colonoscopy (12) s/p laparoscopy (13) s/p tonsillectomy (14) Seizure (15) Seizure disorder (16) Seizures (17) Seizures (18) Sinusitis (19) Sphenoid sinusitis (20) Suicidal ideation (21) Syncope (22) Temporomandibular joint disorder (23) Tobacco dependence (24) Tobacco user Family History Diabetes mellitus GRANDFATHER (maternal) GRANDFATHER (paternal) GRANDMOTHER (maternal) GRANDMOTHER (paternal) FH: breast cancer Aunt (maternal) Aunt (paternal) Hypertension GRANDMOTHER (maternal) Social History Smoking Status: Current Every Day Smoker Alcohol Use: occasionally Drug Use: marijuana Marital Status: in relationship Housing Status: lives with family Occupation Status: disabled Current/Historical Medications Scheduled Control Pills ( Control Pills), 1 TAB PO DAILY Duloxetine HCl (Duloxetine HCl), 60 MG PO QAM Gabapentin (Gabapentin), 800 MG PO TID Lamotrigine (Lamictal), 150 MG PO BID [place] Carbonate ([place] Carbonate), 300 MG PO BID Scheduled PRN Clonazepam (Klonopin), 1 MG PO TID PRN for Anxiety Zolpidem Tartrate (Ambien), 10 MG PO HS PRN for Sleep Allergies Coded Allergies: Clindamycin (Unverified Allergy, Severe, HIVES/TONGUE SWELLING, 02/21/17) Penicillins (Verified Allergy, Severe, RASH,BREATHING DIFFICULTY- CAN TAKE CEPHS., 02/21/17) Sulfa Antibiotics (Verified Allergy, Severe, HIVES/DIFFICULTY BREATHING ( TO SULFA DRUGS), 02/21/17) Tramadol (Unverified Allergy, Severe, HIVES, 02/21/17) Clarithromycin (Verified Allergy, Intermediate, HIVES-HAS TAKEN AZITHROMYCIN W/O PROBLEM, 02/21/17) Azithromycin (Verified Allergy, Unknown, RASH/ITCHINESS, 02/21/17) Fosphenytoin (Verified Allergy, Unknown, burning and itching all over, ) current and new found reaction in ed Ketorolac Tromethamine (Verified Allergy, Unknown, rash, 02/21/17) Valproic Acid (Verified Allergy, Unknown, Hair loss and weight gain., 02/21) Reported by PT. Physical Exam Vital Signs Date Time Temp Pulse Resp B/P (MAP) Pulse Ox O2 Delivery O2 Flow Rate FiO2 02/16/18 20:57 80 16 126/64 100 Room Air 02/16/18 19:21 36.5 84 18 138/73 97 Room Air Physical Exam CONSTITUTIONAL/VITAL SIGNS: Reviewed / noted above. GENERAL: Non-toxic in appearance. INTEGUMENTARY: Warm, dry, and [place]. HEAD: Normocephalic. EYES: without scleral icterus or trauma. ENT/OROPHARYNX: clear and moist. LYMPHADENOPATHY/NECK: Is supple without lymphadenopathy or meningismus. RESPIRATORY: Lungs clear and equal. CARDIOVASCULAR: Regular rate and rhythm. GI/ABDOMEN: Soft and nontender. No organomegaly or pulsatile mass. No rebound or guarding. Normal bowel sounds. EXTREMITIES: Warm and well perfused. BACK: No CVA tenderness. NEUROLOGICAL: Intact without focal deficits. PSYCHIATRIC: normal affect. MUSCULOSKELETAL: Normally developed with good muscle tone. Medical Decision & Procedures ER Provider Diagnostic Interpretation: Radiology results as stated below per my review and radiologist interpretation: HEAD WITHOUT CONTRAST (CT) CLINICAL HISTORY: 37 years-old Female with LOC, seizure different from usual seizure. Acute loss of consciousness with seizure TECHNIQUE: Multiple axial CT images of the head were obtained without contrast. A dose lowering technique was utilized adhering to the principles of ALARA. CT DOSE: 601.98 mGy.cm COMPARISON: Head CT 12/28/2016. FINDINGS: No acute intracranial hemorrhage, midline shift, intracranial mass, hydrocephalus, territorial ischemia or abnormal extra-axial collection. The calvarium is intact. The mastoid air cells, and middle ear cavities are clear. Mild to moderate mucosal thickening of the ethmoid air cells and maxillary sinuses. Soft tissues and orbits are unremarkable. IMPRESSION: 1. No acute intracranial abnormality. 2. Paranasal sinus disease. The above report was generated using voice recognition software. It may contain grammatical, syntax or spelling errors. Electronically signed by: Benson Bernstein M.D. 02/16/2018 8:07 PM Dictated Date/Time: 02/16/2018 8:04 PM Laboratory Results 02/16/18 19:20 Red Blood Count 4.49, Mean Corpuscular Volume 90.9, Mean Corpuscular Hemoglobin 31.8, Mean Corpuscular Hemoglobin Concent 35.0, Mean Platelet Volume 9.6, Neutrophils (%) (Auto) 73.1, Lymphocytes (%) (Auto) 17.9, Monocytes (%) (Auto) 7.8, Eosinophils (%) (Auto) 0.8, Basophils (%) (Auto) 0.2, Neutrophils # (Auto) 6.39, Lymphocytes # (Auto) 1.57, Monocytes # (Auto) 0.68, Eosinophils # (Auto) 0.07, Basophils # (Auto) 0.02 02/16/18 19:20 Test 02/16/18 19:20 02/16/18 20:05 White Blood Count 8.75 K/uL (4.8-10.8) Red Blood Count 4.49 M/uL (4.2-5.4) Hemoglobin 14.3 g/dL (12.0-16.0) Hematocrit 40.8 % (37-47) Mean Corpuscular Volume 90.9 fL (80-100) Mean Corpuscular Hemoglobin 31.8 pg (25-34) Mean Corpuscular Hemoglobin Concent 35.0 g/dl (32-36) Platelet Count 361 K/uL (130-400) Mean Platelet Volume 9.6 fL (7.4-10.4) Neutrophils (%) (Auto) 73.1 % Lymphocytes (%) (Auto) 17.9 % Monocytes (%) (Auto) 7.8 % Eosinophils (%) (Auto) 0.8 % Basophils (%) (Auto) 0.2 % Neutrophils # (Auto) 6.39 K/uL (1.4-6.5) Lymphocytes # (Auto) 1.57 K/uL (1.2-3.4) Monocytes # (Auto) 0.68 K/uL (0.11-0.59) Eosinophils # (Auto) 0.07 K/uL (0-0.5) Basophils # (Auto) 0.02 K/uL (0-0.2) RDW Standard Deviation 45.1 fL (36.4-46.3) RDW Coefficient of Variation 13.7 % (11.5-14.5) Immature Granulocyte % (Auto) 0.2 % Immature Granulocyte # (Auto) 0.02 K/uL (0.00-0.02) Anion Gap 5.0 mmol/L (3-11) Est Creatinine Clear Calc Drug Dose 108.0 ml/min Estimated GFR () 117.0 Estimated GFR (Non- 100.9 BUN/Creatinine Ratio 17.3 (10-20) Calcium Level 9.5 mg/dl (8.5-10.1) Magnesium Level 2.2 mg/dl (1.8-2.4) [place] Level 1.2 mMOL/L (0.6-1.2) Bedside Glucose 61 mg/dl (70-90) Laboratory results as stated above per my review. Medications Administered Medications (Trade) Dose Ordered Sig/Bebeto Route Start Time Stop Time Status Last Admin Dose Admin Sodium Chloride 1,000 ml @ 999 mls/hr Q1H1M ONCE IV 02/16/18 19:30 02/16/18 20:30 DC 02/16/18 19:30 999 MLS/HR Diphenhydramine HCl (Benadryl Inj) 12.5 mg NOW STAT IV 02/16/18 19:34 02/16/18 19:37 DC 02/16/18 19:34 12.5 MG Prochlorperazine Edisylate (Compazine Inj) 10 mg STK-MED ONCE .ROUTE 02/16/18 19:39 02/16/18 19:40 DC 02/16/18 19:39 10 MG Dexamethasone Sodium Phosphate (Dexamethasone Inj Pf) 10 mg STK-MED ONCE .ROUTE 02/16/18 19:39 02/16/18 19:40 DC 02/16/18 19:39 10 MG Clonazepam (Klonopin Tab) 1 mg TODAY@2014 ONCE PO 02/16/18 20:15 02/16/18 20:16 DC 02/16/18 20:15 1 MG Potassium Chloride (Klor-Con Tab) 40 meq NOW STAT PO 02/16/18 20:06 02/16/18 20:11 DC 02/16/18 20:06 40 MEQ ED Course 192: Previous medical records were reviewed. The patient was evaluated in room B10. A complete history and physical examination was performed. 0: Ordered Sodium Chloride 1000 mL @ 999 mL/hr IV. 1933: Ordered Benadryl 12.5 mg IV, Prochlorperazine 10 mL @ 5 mL/min IV. 1944: Ordered Dexamethasone Sodium Phosphate 2.5 mL @ 1 mL/min IV. 2005: Ordered Potassium Chloride 40 meq PO. 2014: Ordered Clonazepam 1 mg PO. 2046: On reevaluation, the patient is resting inbed. I discussed the results and findings with the patient. She verbalized agreement of the treatment plan. The patient was discharged home. Medical Decision Differential includes acute cardiac dysrhythmia, microinfarction, CVA, TIA, dehydration, anemia, electrolyte disturbance, seizure, trauma, intracranial bleeding, acute vascular catastrophe, thoracic aortic dissection, PE, abdominal aortic aneurysm rupture, ectopic rupture. This is a 37-year-old female who presents to the ED with a chief complaint of a syncopal episode at home. Further details listed above. The patient was seen with the resident. The patient's initial prehospital blood sugar was low. She was also slightly low when she first came in. The patient had blood work drawn here and her official blood sugar was 23 although the patient was not really symptomatic with regards to this. She was already given orange juice and crackers prior to the official blood results and it was rechecked and was 61. The patient was fed. Recheck of her blood sugar was 55. The patient's blood sugars were checked several times in remained stable. Her CBC is normal, potassium was 3.1 and lithium level is 1.2. A CT scan of the brain for headache was negative for acute disease. Urine did not show infection. The patient was given IV Decadron, IV Benadryl, IV Compazine as well as IV fluids during her ED stay. She was also given some Klonopin as she does take this regularly. On assessment, the patient is feeling fine. She has no specific complaints at this time. Medication Reconcilliation Current Medication List: was personally reviewed by me Blood Pressure Screening Patient's blood pressure: Normal blood pressure Impression Primary Impression: Hypoglycemia Additional Impressions: Seizure disorder Hypokalemia Scribe Attestation The scribe's documentation has been prepared under my direction and personally reviewed by me in its entirety. I confirm that the note above accurately reflects all work, treatment, procedures, and medical decision making performed by me. Departure Information Dispostion Home / Self-Care Referrals Felice Franco M.D. (PCP) Patient Instructions [facility] Problem Qualifiers
[2018-02-16 22:43] VITALS: BP 134/76; PULSE 75; O2SAT 98
== END 2018-02-16 22:44 | disposition home or self-care (01) ==
LOC: EDBD 19:12 → C.EDB 19:14
DX: E16.2 Hypoglycemia, unspecified (principal); G40.909 Epilepsy, unspecified, not intractable, without status epilepticus; E87.6 Hypokalemia; G43.909 Migraine, unspecified, not intractable, without status migrainosus; N80.9 Endometriosis, unspecified; M26.609 Unspecified temporomandibular joint disorder, unspecified side; F17.200 Nicotine dependence, unspecified, uncomplicated; F12.10 Cannabis abuse, uncomplicated; Z87.442 Personal history of urinary calculi; Z86.14 Personal history of Methicillin resistant Staphylococcus aureus infection; Z83.3 Family history of diabetes mellitus; Z82.49 Family history of ischemic heart disease and other diseases of the circulatory system; Z80.3 Family history of malignant neoplasm of breast; Z79.3 Long term (current) use of hormonal contraceptives

== ENCOUNTER 2019-02-20 06:53 | Inpatient (IN) ==
--- NOTE | 2019-02-16 14:43 | Anesthesiology Consultation ---
Date of Service February 16, 2019 History Surgery Operation Date: 02/20/19 07:30 Proposed Procedures p Section in LD - Armaan Davis MD Height/Weight Height: 5 ft 2 in Weight: 87.997 kg Allergies Allergy/AdvReac Type Severity Reaction Status Date / Time clindamycin Allergy Severe HIVES/TONGUE Verified 02/13/19 08:36 SWELLING Penicillins Allergy Severe RASH,BREATHING Verified 02/13/19 08:36 DIFFICULTY- CAN TAKE CEPHS. Sulfa (Sulfonamide Allergy Severe HIVES/DIFFICULTY Verified 02/13/19 08:36 Antibiotics) BREATHING (TO SULFA DRUGS) tramadol Allergy Severe HIVES Verified 02/13/19 08:36 clarithromycin Allergy Intermediate HIVES-HAS Verified 02/13/19 08:36 TAKEN AZITHROMYCIN W/O PROBLEM azithromycin Allergy Unknown Unknown Verified 02/13/19 08:36 erythromycin base Allergy Unknown Unknown Verified 02/13/19 08:36 fosphenytoin Allergy Unknown burning Verified 02/13/19 08:36 and itching all over ketorolac Allergy Unknown rash Verified 02/13/19 08:36 mivacurium Allergy Unknown RASH/ITCHIN Verified 02/13/19 08:36 ESS valproic acid Allergy Unknown Hair loss Verified 02/13/19 08:36 and weight gain. Medications Home Medications Medication Instructions Recorded Confirmed Last Taken aspirin [Aspirin Low Dose] 81 mg PO QAM 12/19/18 02/13/19 12/19/18 gabapentin [Neurontin] 800 mg PO QID 12/19/18 02/13/19 12/19/18 lamotrigine 150 mg PO TID 12/19/18 02/13/19 12/19/18 multivitamin 1 tab PO QAM 12/19/18 02/13/19 12/19/18 zolpidem [Ambien] 10 mg PO HS PRN 12/19/18 02/13/19 12/18/18 alprazolam [Xanax] 1 mg PO TID PRN 02/13/19 02/13/19 Unknown Past Medical History Medical History Anemia Anxiety Bipolar disorder Endometriosis Epilepsy LAST SEIZURE 02/04/19, PRIOR TO THAT 11/2018 [facility] Gout Hearing deficit RT EAR History of kidney stones History of migraine History of ovarian cyst Spinal stenosis Past Surgical History Surgical History History of section History of colonoscopy History of laparoscopy History of sinus surgery X2 History of tonsillectomy History of wisdom tooth extraction Previous section Social History Smoking Status: Current every day smoker tobacco type: cigarettes Smoking cigarettes per day: 4 PER DAY Do You Dip or Chew Tobacco: No Hx Alcohol Use: No Hx Substance Use: Yes substance use type: former substance user Substance Use Type Other:: HEROIN - LAST USED 12 YEARS AGO
--- NOTE | 2019-02-17 10:22 | Anesthesiology Consultation ---
Date of Service February 17, 2019 Assessment & Plan (1) Encounter for pre-operative examination: - Neurology= 09/30/18= consulted during for convulsions. 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 Prior EEG's have been negative. Episodes typically consistent with rigidity/twitching/unresponsiveness and typically last a few minutes. Most recent episodes were 02/04/19 and 11/2018. She states she has been feeling well since last episode. Patient states these episodes are triggered by stress/anxiety (which has been heightened recently with /social issues). Neurology discussed updating EEG again but patient states she discussed with neurology that this would be okay to update after delivery. - Discussed case with Dr. Almanzar who states anesthesiologist Dr. Stevens was made aware of patient's pmhx/the above in anticipation for her repeat c/s scheduled 02/20* - Hx pre-eclampsia with 2006 ; on ASA per OB instruction. - Emergency c/s 12/31 breech position; per patient, dosed epidural was successful for pain control but took multiple attempts for placement; unable to obtain records Chart Review Chart Review: Acceptable Risk for Surgery and Patient seen in Pre Admission Testing Teaching & Discussion Pre-Anesthesia Teaching/Discussion Notes: Instructed NPO after midnight before surgery,except medications with 15 cc of water. Medication instructions provided according to the PAT guidelines. History Surgery Operation Date: 02/20/19 07:30 Proposed Procedures p Section in LD - Armaan Davis MD s Post Tubal Ligation - Armaan Davis MD Height/Weight Height: 5 ft 2 in Weight: 96.3 kg Allergies Allergy/AdvReac Type Severity Reaction Status Date / Time clindamycin Allergy Severe HIVES/TONGUE Verified 02/13/19 08:36 SWELLING Penicillins Allergy Severe RASH,BREATHING Verified 02/13/19 08:36 DIFFICULTY- CAN TAKE CEPHS. Sulfa (Sulfonamide Allergy Severe HIVES/DIFFICULTY Verified 02/13/19 08:36 Antibiotics) BREATHING (TO SULFA DRUGS) tramadol Allergy Severe HIVES Verified 02/13/19 08:36 clarithromycin Allergy Intermediate HIVES-HAS Verified 02/13/19 08:36 TAKEN AZITHROMYCIN W/O PROBLEM azithromycin Allergy Unknown Unknown Verified 02/13/19 08:36 erythromycin base Allergy Unknown Unknown Verified 02/13/19 08:36 fosphenytoin Allergy Unknown burning Verified 02/13/19 08:36 and itching all over ketorolac Allergy Unknown rash Verified 02/13/19 08:36 mivacurium Allergy Unknown RASH/ITCHIN Verified 02/13/19 08:36 ESS valproic acid Allergy Unknown Hair loss Verified 02/13/19 08:36 and weight gain. Medications Home Medications Medication Instructions Recorded Confirmed Last Taken aspirin [Aspirin Low Dose] 81 mg PO QAM 12/19/18 02/13/19 12/19/18 gabapentin [Neurontin] 800 mg PO QID 12/19/18 02/13/19 12/19/18 lamotrigine 150 mg PO TID 12/19/18 02/13/19 12/19/18 multivitamin 1 tab PO QAM 12/19/18 02/13/19 12/19/18 zolpidem [Ambien] 10 mg PO HS PRN 12/19/18 02/13/19 12/18/18 alprazolam [Xanax] 1 mg PO TID PRN 02/13/19 02/13/19 Unknown Past Medical History Medical History Anemia Anxiety Endometriosis Gout Hearing deficit RIGHT EAR History of migraine History of ovarian cyst Spinal stenosis Bipolar disorder Convulsions "PSYCHOGENIC NON-EPILEPTIC SEIZURES" PER NEURO History of kidney stones History of pre-eclampsia WITH 2006 , ON ASA WITH CURRENT NO BP ISSUES WITH CURRENT Past Family History Family History Mother Kidney stones Past Surgical History Surgical History History of section History of colonoscopy History of laparoscopy History of sinus surgery X2 History of tonsillectomy History of wisdom tooth extraction Previous section Past Anesthesia History No Family Hx of Anesthesia Complications and Other Emergency c/s 12/31 breech position; per patient, dosed epidural was successful for pain control but took multiple attempts for placement; unable to obtain records History of PONV No Motion Sickness Screening History of Motion Sickness: No Social History Smoking Status: Current every day smoker tobacco type: cigarettes Smoking cigarettes per day: <1/4 PPD; 3-4PPD TOTAL X 20+ YEARS Do You Dip or Chew Tobacco: No Hx Alcohol Use: No Hx Substance Use: Yes substance use type: former substance user Substance Use Type Other:: HEROIN - LAST USED 12 YEARS AGO Exercise / Class Metabolic Activity III < 4 Walking/Shop/Light housework Review of Systems LBP chronic but worsened with . Patient denies chest pain, shortness of breath, cough, wheezing, palpitations. Physical Exam Vital Signs Last Vital Signs Pulse 80 02/20/19 06:57 BP 117/66 02/20/19 06:57 VITALS BP 108/69 P 79 TEMP 98.4 SP02 98.4 RESP 100%RA PHYSICAL Full neck and c-spine range of motion. Full TMJ range of motion. TMD 4 finger breaths Mallampati Score 2 Dentition: poor dentition; upper front 3/4th teeth missing b/l Lungs: clear throughout to auscultation Cardiac: regular rate and rhythm, no murmurs noted Spine: normal Carotid arteries: negative bruit Extremities: no edema Short neck Testing Electrocardiogram Date: 12/19/18 NSR at 96bpm. Possible LAE. Chest X-Ray Date: 08/24/18 Findings: + NAD
--- NOTE | 2019-02-17 10:27 | PAT Medication Instructions ---
Medication Instructions Date of Service February 17, 2019 Home Medications aspirin [Aspirin Low Dose] 81 mg PO QAM gabapentin [Neurontin]800 mg PO QID lamotrigine 150 mg PO TID multivitamin 1 tab PO QAM zolpidem [Ambien] 10 mg PO HS PRN alprazolam [Xanax] 1 mg PO TID PRN ASK your prescriber and surgeon aspirin [Aspirin Low Dose] 81 mg PO QAM DO NOT take the morning of surgery multivitamin 1 tab PO QAM Take morning of surgery With a small sip of water, OTHERWISE NOTHING TO EAT OR DRINK AFTER MIDNIGHT: gabapentin [Neurontin]800 mg PO QID lamotrigine 150 mg PO TID alprazolam [Xanax] 1 mg PO TID PRN (if needed) Take evening before surgery gabapentin [Neurontin]800 mg PO QID lamotrigine 150 mg PO TID zolpidem [Ambien] 10 mg PO HS PRN (if needed) alprazolam [Xanax] 1 mg PO TID PRN (if needed) Other Notes If you have any questions please call us at [phone] or [phone] or [phone] or [phone]
--- NOTE | 2019-02-19 23:36 | History and Physical Report ---
DATE OF ADMISSION: 02/20/2019 REASON FOR ADMISSION: Scheduled repeat section with bilateral tubal ligation and scar revision. BRIEF HISTORY: Ms. Del Valle is a 38-year-old G3, P1-0-1-1 with planned admission at 39 weeks 2 days gestational age with an NEMO of 02/25/2019 by 13-week ultrasound. The patient presents to clinic today for preoperative visit for planned repeat section with bilateral tubal ligation and scar revision. Today, the patient reports that she is doing well without significant complaints. She denied any significant contractions, vaginal bleeding, leakage of fluid, and is reporting good movement. consents were reviewed and signed in clinic today. The patient did desire a bilateral tubal ligation. MA-31 forms were previously signed on 09/28/[address] Giron. PROBLEMS: 1. Bipolar 1 disorder. 2. Seizure disorder versus pseudoseizure disorder. 3. History of preeclampsia. 4. History of drug abuse and dependence. 5. Complicated social history. PAST MEDICAL HISTORY: 1. Anxiety with depression and bipolar 1 disorder. 2. Seizure disorder versus pseudoseizure disorder. 3. Drug abuse and dependence. 4. Hypothyroidism. PAST SURGICAL HISTORY: 1. x1. This was complicated by postoperative wound infection requiring the incision to close via secondary intent. 2. [place] teeth. 3. Tonsillectomy. 4. Diagnostic laparoscopy. GYNECOLOGIC HISTORY: LMP unknown. Last Pap within normal limits. OBSTETRIC HISTORY: The patient reports of elective in 2017 as well as a primary in 2006. is complicated by preeclampsia and postoperative wound infection. FAMILY HISTORY: Noncontributory. SOCIAL HISTORY: The patient is currently homeless, living between various family members. Reports a history of drug abuse and dependence. ALLERGIES: THE PATIENT HAS EXTENSIVE MEDICAL ALLERGY LIST, PLEASE SEE EMR. MEDICATIONS: 1. Xanax. 2. Baby aspirin 81 mg. 3. Multivitamin. 4. Zolpidem tartrate 10 mg oral tablet at bedtime. 5. Neurontin 800 mg t.i.d. 6. Lamotrigine 150 mg daily. PHYSICAL EXAMINATION: VITAL SIGNS: Today, blood pressure 118/60, weight 212 pounds. GENERAL: The patient is well appearing in no acute distress, alert and oriented x3. HEART: Regular rate and rhythm. LUNGS: Clear to auscultation bilaterally. ABDOMEN: Soft, nontender, gravid. Estimated weight is approximately 7-1/2 pounds. Fetus is cephalic by Maikel's today. heart rate in the 150s. Fundal height 38 cm. EXTREMITIES: Lower extremities show 1+ edema bilaterally. ASSESSMENT: Ms. Del Valle is a 38-year-old G3, P1-0-1-1 with planned admission on 02/20/2019 for scheduled repeat section with bilateral tubal ligation and scar revision. PLAN: 1. Fetus, will obtain NST prior to proceeding to the OR. 2. consents were reviewed and signed in clinic today. Plan is for a repeat section with bilateral tubal ligation and scar revision. The patient previously signed MA-31 papers on 09/28/[address] Giron in clinic. Plans for surgery were discussed in detail. 3. hemorrhage risk, considered moderate risk. Will collect CBC and type and screen. 4. History of drug abuse and dependence. Will collect UDS on admission, will consult high school social studies teacher during hospital course. 5. Seizure disorder/pseudoseizure disorder. We will continue home medications.
[~2019-02-20 06:53] MED LIST changes: +CITRIC ACID/SODIUM CITRATE 15 ML UDC PO SCH; -CLON1TAB3 PO; -LAMO150T PO; -LITH150C6 PO; -LOW OGESTREL PO; -NRN800 PO; -ZOLP10TA PO
[2019-02-20] MEDS ORDERED: LACTATED RINGER'S 1,000 ML IV SCH ×3 (07:00→09:30)
--- NOTE | 2019-02-20 07:26 | History & Physical Bridge Note ---
Date of Service February 20, 2019 History & Physical Bridge Note I have examined the patient, reviewed the History & Physical and in the interval since the performance of the History & Physical I have noted the following changes of clinical significance: no changes noted
[2019-02-20] MEDS ORDERED: CEFAZOLIN 3000MG/72.5 ML BAG IV STA ×2 (07:34)
[2019-02-20] MEDS ORDERED: MoRPHine SULFATE PF 1 MG/ML 10 ML AMP/VIAL ONE (07:37)
[2019-02-20] MEDS ORDERED: fentaNYL citrate 100 MCG/2 ML VIAL ONE (07:37)
[2019-02-20] MEDS ORDERED: CEFAZOLIN 2000MG 2,000 MG/15 ML SYR IV STA (07:49)
[2019-02-20 07:54] LABS: Basophils # (auto) 0.02 K/uL (0-0.2); Basophils % (auto) 0.1 %; Eosinophils # (auto) 0.15 K/uL (0-0.5); Eosinophils % (auto) 1.1 %; Hematocrit (blood only) 29.1 % (37-47); Hemoglobin 9.7 g/dL (12.0-16.0); Immature Granulocytes # (auto) 0.06 K/uL (0.00-0.02); Immature Granulocytes % (auto) 0.4 %; Lymphocytes # (auto) 3.36 K/uL (1.2-3.4); Lymphocytes % (auto) 24.4 %; Mean Corpuscular Volume 87.1 fL (80-100); Mean Platelet Volume 9.8 fL (7.4-10.4); Monocytes # (auto) 1.19 K/uL (0.11-0.59); Monocytes % (auto) 8.6 %; Neutrophils # (auto) 9.01 K/uL (1.4-6.5); Neutrophils % (auto) 65.4 %; Platelet Count 445 K/uL (130-400); RDW Coefficient of Variation 14.6 % (11.5-14.5); RDW Standard Deviation 46.1 fL (36.4-46.3); Red Blood Count 3.34 M/uL (4.2-5.4); White Blood Count 13.79 K/uL (4.8-10.8)
[2019-02-20 07:57] LABS: Mean Corpuscular Hgb Conc 33.3 g/dL (32-36)
[2019-02-20] MEDS ORDERED: PHENYLEPHRINE 100MCG/ML 5ML SYR ONE (08:21)
[2019-02-20] MEDS ORDERED: OXYTOCIN 10 UNITS/ML VIAL ONE (08:21)
[2019-02-20] MEDS ORDERED: ePHEDrine sulfate 50 MG/ML AMP ONE (08:21)
[2019-02-20] MEDS ORDERED: ONDANSETRON INJ 2 MG/ML 2 ML VIAL ONE (08:21)
[2019-02-20 08:32] LABS: Amphetamines+Metham, Urine Neg (Neg); Barbiturates, Urine Neg (Neg); Benzodiazepine, Urine Pos (Neg); Cocaine, Urine Neg (Neg); MDMA (Ecstacy), Urine Neg (Neg); Methadone, Urine Neg (Neg); Opiate, Urine Neg (Neg); Phencyclidine, Urine Neg (Neg)
[2019-02-20] MEDS ORDERED: NALOXONE HCL 0.4 MG/1 ML VIAL/CARP IV PRN (09:04)
[2019-02-20] MEDS ORDERED: DiphenhydrAMINE HCL 50 MG/ML VIAL IV PRN ×2 (09:04)
[2019-02-20] MEDS ORDERED: NALOXONE HCL 1 MG in SODIUM CHLORIDE 0.9% 1000ML 1,000 ML IV PRN (09:04)
[2019-02-20] MEDS ORDERED: MoRPHine SULFATE 2 MG/ML CARP IV PRN (09:04)
[2019-02-20] MEDS ORDERED: MoRPHine SULFATE PF 1 MG/ML 10 ML AMP/VIAL INT SPINAL ONE (09:04)
[2019-02-20] MEDS ORDERED: NALOXONE HCL 0.08 MG in SYRINGE 1.8 ML IV PRN (09:04)
[2019-02-20] MEDS ORDERED: ePHEDrine sulfate 50 MG/ML AMP IV PRN (09:04)
[2019-02-20] MEDS ORDERED: LACTATED RINGER'S 500 ML IV PRN (09:04)
[2019-02-20] MEDS ORDERED: NALBUPHINE HCL INJ 10 MG/ML AMP IV PRN (09:04)
[2019-02-20] MEDS ORDERED: ONDANSETRON INJ 2 MG/ML 2 ML VIAL IV PRN (09:04)
[2019-02-20] MEDS ORDERED: PROMETHAZINE HCL 6.25 MG in SODIUM CHLORIDE 0.9% 50 ML IV PRN (09:04)
[2019-02-20] MEDS ORDERED: ZOLPIDEM TARTRATE 10 MG TAB PO PRN (09:06)
[2019-02-20] MEDS ORDERED: NO NARCOTICS OR SEDATIVES SCH (09:15)
[2019-02-20] MEDS ORDERED: DC INTRASPINAL MORPHINE SCH (09:15)
[2019-02-20] MEDS ORDERED: SODIUM CHLORIDE 0.9% 1000ML 1,000 ML IV SCH (09:15)
[2019-02-20] MEDS ORDERED: BENZOCAINE 20% AER SPR 82.5 GM CAN EXT PRN (09:17)
[2019-02-20] MEDS ORDERED: HYDROCORTISONE ACETATE 25 MG SUPP PR PRN (09:17)
[2019-02-20] MEDS ORDERED: SUPERCREAM 0.870% 15 GM JAR EXT PRN (09:17)
[2019-02-20] MEDS ORDERED: DIPHTHERIA/TETANUS/PERTUSSIS 0.5 ML SYR/VIAL IM ONE (09:17)
[2019-02-20] MEDS ORDERED: MAGNESIUM HYDROXIDE SUSP 30 ML UDC PO PRN (09:17)
[2019-02-20] MEDS ORDERED: SENNA 8.6 MG TAB PO PRN (09:17)
--- NOTE | 2019-02-20 09:17 | Post Operative Brief Note ---
Immediate Post Op Note v1 Date of Surgery February 20, 2019 Pre & Post Diagnosis Operation Date: 02/20/19 07:30 Pre-Op Diagnosis: History of Section, Desires sterilization Post-Op Diagnosis: History of Section, Desires sterilization Procedure Operation Date: 02/20/19 07:30 Actual Procedures p Section in LD: Live Female at 0825(Bilateral) - Armaan Davis MD s Post Tubal Ligation(Bilateral) - Armaan Davis MD EBL: 600 Complications: None Surgeon Armaan Davis MD Principal Process Engineer Chantal Estimated Blood Loss 600 Findings Consistent with Post-Op Diagnosis Drains Elkins Catheter
[2019-02-20] MEDS: ACETAMINOPHEN 1,000 MG/100 ML VIAL IV SCH ×2 (10:29→18:25)
[2019-02-20] MEDS ORDERED: OXYTOCIN 20 UNITS in LACTATED RINGER'S 1,000 ML IV SCH (10:30)
--- NOTE | 2019-02-20 11:39 | Anesthesiology Progress Note ---
Date of Service February 20, 2019 Anesthesia Post Procedure Vital Signs Vital Signs: Temp Pulse Resp BP Pulse Ox 02/20/19 11:36 69 98 02/20/19 11:34 81 115/57 L 02/20/19 11:31 64 96 02/20/19 11:26 64 98 02/20/19 11:25 60 111/54 L 02/20/19 11:21 64 98 02/20/19 11:16 66 97 02/20/19 11:15 58 L 119/57 L 02/20/19 11:11 64 97 02/20/19 11:06 61 97 02/20/19 11:05 65 118/60 02/20/19 11:01 63 97 02/20/19 10:56 62 97 02/20/19 10:55 61 115/68 02/20/19 10:51 63 95 02/20/19 10:50 18 02/20/19 10:46 62 97 02/20/19 10:45 63 114/61 02/20/19 10:41 66 96 02/20/19 10:36 84 99 02/20/19 10:35 65 114/73 02/20/19 10:31 74 100 02/20/19 10:26 62 98 02/20/19 10:25 73 109/68 02/20/19 10:21 66 99 02/20/19 10:20 36.6 C 18 02/20/19 10:16 64 99 02/20/19 10:15 78 118/62 02/20/19 10:11 74 100 02/20/19 10:08 109 H 92 02/20/19 10:06 65 98 02/20/19 10:05 55 L 16 116/57 L 02/20/19 10:01 63 97 02/20/19 10:00 63 97 02/20/19 09:56 68 100/53 L 96 02/20/19 09:51 62 96 02/20/19 09:50 16 02/20/19 09:46 63 98 02/20/19 09:45 79 111/58 L 02/20/19 09:42 66 89 L 02/20/19 09:41 68 97 02/20/19 09:40 18 02/20/19 09:36 66 97 02/20/19 09:35 67 102/55 L 02/20/19 09:31 70 99 02/20/19 09:30 68 100/53 L 96 02/20/19 09:26 71 97 02/20/19 09:25 70 99/52 L 02/20/19 09:20 36.3 C L 18 02/20/19 07:04 36.9 C 18 02/20/19 06:57 80 117/66 Pain Intensity Lower Abdomen: Pain Intensity: 2 Notes Mental Status: alert / awake / arousable Patient Amnestic to Procedure: No Nausea / Vomiting: adequately controlled Pain: adequately controlled Airway Patency, RR, SpO2: stable & adequate BP & HR: stable & adequate Hydration State: stable & adequate Neuraxial Anesthesia: was administered and sensory block is resolving Anesthetic Complications: no major complications apparent
[2019-02-20] MEDS: HYDROmorphone INJ 0.5 MG/0.5 ML SYR IV PRN ×3 (12:13→21:51)
[2019-02-20] MEDS: SIMETHICONE 80 MG CHEW PO SCH ×3 (13:02→20:30)
[2019-02-20] MEDS ORDERED: NON-FORMULARY MEDICATION (Lamotrigine 300 MG) PO SCH (14:00)
[2019-02-20] MEDS: GABAPENTIN 800 MG TAB PO SCH ×3 (14:35→20:30)
[2019-02-20] MEDS: lamoTRIgine 100 MG TAB PO SCH ×2 (14:35→20:30)
[2019-02-20] MEDS: MEPERIDINE HCL 25 MG/ML CARP IV PRN ×2 (14:49→19:41)
[2019-02-20] MEDS ORDERED: ALPRAZolam 0.5 MG TABLET PO PRN (15:30)
[2019-02-20] MEDS: DOCUSATE SODIUM 100 MG CAP PO SCH (20:30)
[2019-02-21] MEDS: MEPERIDINE HCL 25 MG/ML CARP IV PRN (01:09)
[2019-02-21] MEDS: ACETAMINOPHEN 1,000 MG/100 ML VIAL IV SCH (02:29)
[2019-02-21] MEDS ORDERED: PROMETHAZINE HCL 25 MG in SODIUM CHLORIDE 0.9% 50 ML IV PRN (03:06)
[2019-02-21] MEDS ORDERED: ONDANSETRON INJ 2 MG/ML 2 ML VIAL IV PRN (03:06)
[2019-02-21] MEDS: OXYCODONE/ACETAMINOPHEN 5mg/325mg TAB PO PRN ×6 (03:12→22:07)
[2019-02-21 06:18] LABS: Basophils # (auto) 0.02 K/uL (0-0.2); Basophils % (auto) 0.2 %; Eosinophils # (auto) 0.16 K/uL (0-0.5); Eosinophils % (auto) 1.4 %; Hematocrit (blood only) 26.8 % (37-47); Hemoglobin 8.8 g/dL (12.0-16.0); Immature Granulocytes # (auto) 0.03 K/uL (0.00-0.02); Immature Granulocytes % (auto) 0.3 %; Lymphocytes # (auto) 2.99 K/uL (1.2-3.4); Lymphocytes % (auto) 26.2 %; Mean Corpuscular Hgb Conc 32.8 g/dL (32-36); Mean Corpuscular Volume 87.9 fL (80-100); Mean Platelet Volume 9.4 fL (7.4-10.4); Monocytes # (auto) 1.14 K/uL (0.11-0.59); Neutrophils # (auto) 7.09 K/uL (1.4-6.5); Neutrophils % (auto) 61.9 %; Platelet Count 396 K/uL (130-400); RDW Coefficient of Variation 14.7 % (11.5-14.5); RDW Standard Deviation 47.3 fL (36.4-46.3); Red Blood Count 3.05 M/uL (4.2-5.4); White Blood Count 11.43 K/uL (4.8-10.8)
[2019-02-21 07:05] LABS: RBC Morphology Unremarkable
--- NOTE | 2019-02-21 07:25 | Obstetrical Progress Note ---
Date of Service February 21, 2019 Assessment & Plan (1) Delivery by section of full-term infant: routine care. adv diet, await void. enc ambulation. c/w pain meds. Subjective Ambulation: ambulating normally Passing Gas:: Yes Diet Tolerance:: regular diet Lochia:: Small Feeding Type:: breast feeding Pt notes some cramping of uterus. denies incisional pain. has not voided yet. pain well controlled. Physical Exam Vital Signs (Past 24 Hours) Last Vital Signs Temp 37.0 C 02/21/19 03:21 Pulse 83 02/21/19 03:21 Resp 18 02/21/19 03:21 BP 108/63 02/21/19 03:21 Pulse Ox 94 02/21/19 03:00 Constitutional WD/WN, vitals as above Respiratory normal respiratory effort, lungs clear to auscultation Cardiovascular Rate/Rhythm: regular rate and regular rhythm Gastrointestinal (Abdomen) soft ff 2 down, incision c/d/i with steris Musculoskeletal non tender calves Neurologic grossly normal Psychiatric Orientation: alert Eye Contact: good eye contact Affect: euthymic affect holding baby on chest and cuddling
--- NOTE | 2019-02-21 07:41 | Anesthesiology Progress Note ---
Date of Service February 21, 2019 Anesthesia Post Procedure Vital Signs Vital Signs: Temp Pulse Pulse Resp BP BP Pulse Ox 02/21/19 03:21 98.6 F 83 18 108/63 02/21/19 03:00 18 94 02/21/19 02:00 18 94 02/21/19 01:00 18 96 02/21/19 00:00 18 94 02/20/19 23:54 98.1 F 100 H 18 102/53 L 02/20/19 23:45 18 94 02/20/19 22:15 20 94 02/20/19 21:40 18 94 02/20/19 20:40 98.2 F 81 20 106/66 95 02/20/19 19:15 22 95 02/20/19 18:00 20 95 02/20/19 16:50 22 94 02/20/19 15:50 98.1 F 76 22 107/65 95 02/20/19 15:39 80 96 02/20/19 15:34 82 97 02/20/19 15:29 80 97 02/20/19 15:24 83 97 02/20/19 15:19 95 H 97 02/20/19 15:14 87 97 02/20/19 15:09 86 98 02/20/19 15:04 87 97 02/20/19 15:00 98.1 F 16 96 02/20/19 14:59 82 98 02/20/19 14:54 82 97 02/20/19 14:49 74 95 02/20/19 14:45 75 130/58 L 02/20/19 14:44 74 96 02/20/19 14:39 86 96 02/20/19 14:34 74 96 02/20/19 14:30 18 96 02/20/19 14:29 72 94 02/20/19 14:24 76 94 02/20/19 14:19 78 95 02/20/19 14:14 87 94 02/20/19 14:09 79 95 02/20/19 14:04 78 93 02/20/19 13:59 83 95 02/20/19 13:54 86 95 02/20/19 13:49 74 94 02/20/19 13:46 82 94 02/20/19 13:44 82 95 02/20/19 13:39 82 94 02/20/19 13:34 87 94 02/20/19 13:33 78 94 02/20/19 13:30 18 98 02/20/19 13:29 79 95 02/20/19 13:28 77 94 02/20/19 13:24 79 95 02/20/19 13:07 98.1 F 18 02/20/19 13:05 67 112/58 L 02/20/19 13:01 74 96 02/20/19 12:56 74 97 02/20/19 12:55 104 H 95/66 L 02/20/19 12:51 74 96 02/20/19 12:46 63 97 02/20/19 12:44 79 114/61 02/20/19 12:41 66 98 02/20/19 12:36 73 97 02/20/19 12:35 97.3 F L 68 18 111/56 L 96 02/20/19 12:31 76 97 02/20/19 12:26 67 96 02/20/19 12:21 81 96 02/20/19 12:19 70 94 02/20/19 12:16 69 99 02/20/19 12:15 70 126/59 L 02/20/19 12:11 72 100 02/20/19 12:06 69 96 02/20/19 12:05 134 H 115/58 L 02/20/19 12:01 65 96 02/20/19 11:56 69 120/58 L 98 02/20/19 11:51 65 97 02/20/19 11:46 66 108/58 L 97 02/20/19 11:41 68 97 02/20/19 11:36 69 98 02/20/19 11:34 81 115/57 L 02/20/19 11:31 64 96 02/20/19 11:26 64 98 02/20/19 11:25 97.3 F L 60 20 111/54 L 02/20/19 11:21 64 98 02/20/19 11:16 66 97 02/20/19 11:15 58 L 119/57 L 02/20/19 11:11 64 97 02/20/19 11:06 61 97 02/20/19 11:05 65 118/60 02/20/19 11:01 63 97 02/20/19 10:56 62 97 02/20/19 10:55 61 115/68 02/20/19 10:51 63 95 02/20/19 10:50 18 02/20/19 10:46 62 97 02/20/19 10:45 63 114/61 02/20/19 10:41 66 96 02/20/19 10:36 84 99 02/20/19 10:35 65 114/73 02/20/19 10:31 74 100 02/20/19 10:26 62 98 02/20/19 10:25 73 109/68 02/20/19 10:21 66 99 02/20/19 10:20 97.3 F L 18 02/20/19 10:16 64 99 02/20/19 10:15 78 118/62 02/20/19 10:11 74 100 02/20/19 10:08 109 H 92 02/20/19 10:06 65 98 02/20/19 10:05 55 L 16 116/57 L 02/20/19 10:01 63 97 02/20/19 10:00 63 97 02/20/19 09:56 68 100/53 L 96 02/20/19 09:51 62 96 02/20/19 09:50 16 02/20/19 09:46 63 98 02/20/19 09:45 79 111/58 L 02/20/19 09:42 66 89 L 02/20/19 09:41 68 97 02/20/19 09:40 18 02/20/19 09:36 66 97 02/20/19 09:35 67 102/55 L 02/20/19 09:31 70 99 02/20/19 09:30 68 100/53 L 96 02/20/19 09:26 71 97 02/20/19 09:25 70 99/52 L 02/20/19 09:20 97.3 F L 18 Pulse Ox 02/21/19 03:21 02/21/19 03:00 02/21/19 02:00 02/21/19 01:00 02/21/19 00:00 02/20/19 23:54 02/20/19 23:45 02/20/19 22:15 02/20/19 21:40 02/20/19 20:40 02/20/19 19:15 02/20/19 18:00 02/20/19 16:50 02/20/19 15:50 95 02/20/19 15:39 02/20/19 15:34 02/20/19 15:29 02/20/19 15:24 02/20/19 15:19 02/20/19 15:14 02/20/19 15:09 02/20/19 15:04 02/20/19 15:00 02/20/19 14:59 02/20/19 14:54 02/20/19 14:49 02/20/19 14:45 02/20/19 14:44 02/20/19 14:39 02/20/19 14:34 02/20/19 14:30 02/20/19 14:29 02/20/19 14:24 02/20/19 14:19 02/20/19 14:14 02/20/19 14:09 02/20/19 14:04 02/20/19 13:59 02/20/19 13:54 02/20/19 13:49 02/20/19 13:46 02/20/19 13:44 02/20/19 13:39 02/20/19 13:34 02/20/19 13:33 02/20/19 13:30 02/20/19 13:29 02/20/19 13:28 02/20/19 13:24 02/20/19 13:07 02/20/19 13:05 02/20/19 13:01 02/20/19 12:56 02/20/19 12:55 02/20/19 12:51 02/20/19 12:46 02/20/19 12:44 02/20/19 12:41 02/20/19 12:36 02/20/19 12:35 02/20/19 12:31 02/20/19 12:26 02/20/19 12:21 02/20/19 12:19 02/20/19 12:16 02/20/19 12:15 02/20/19 12:11 02/20/19 12:06 02/20/19 12:05 02/20/19 12:01 02/20/19 11:56 02/20/19 11:51 02/20/19 11:46 02/20/19 11:41 02/20/19 11:36 02/20/19 11:34 02/20/19 11:31 02/20/19 11:26 02/20/19 11:25 02/20/19 11:21 02/20/19 11:16 02/20/19 11:15 02/20/19 11:11 02/20/19 11:06 02/20/19 11:05 02/20/19 11:01 02/20/19 10:56 02/20/19 10:55 02/20/19 10:51 02/20/19 10:50 02/20/19 10:46 02/20/19 10:45 02/20/19 10:41 02/20/19 10:36 02/20/19 10:35 02/20/19 10:31 02/20/19 10:26 02/20/19 10:25 02/20/19 10:21 02/20/19 10:20 02/20/19 10:16 02/20/19 10:15 02/20/19 10:11 02/20/19 10:08 02/20/19 10:06 02/20/19 10:05 02/20/19 10:01 02/20/19 10:00 02/20/19 09:56 02/20/19 09:51 02/20/19 09:50 02/20/19 09:46 02/20/19 09:45 02/20/19 09:42 02/20/19 09:41 02/20/19 09:40 02/20/19 09:36 02/20/19 09:35 02/20/19 09:31 02/20/19 09:30 02/20/19 09:26 02/20/19 09:25 02/20/19 09:20 Pain Intensity Lower Abdomen: Pain Intensity: 7 Notes Mental Status: alert / awake / arousable and participated in evaluation Nausea / Vomiting: adequately controlled Pain: adequately controlled Airway Patency, RR, SpO2: stable & adequate BP & HR: stable & adequate Hydration State: stable & adequate Neuraxial Anesthesia: was administered and sensory block resolved Anesthetic Complications: no major complications apparent and Pt Satisfied with anesthetic care
[2019-02-21] MEDS: GABAPENTIN 800 MG TAB PO SCH ×4 (08:31→20:25)
--- NOTE | 2019-02-21 08:31 | Anesthesiology Progress Note ---
Date of Service February 21, 2019 Anesthesia Post Procedure Vital Signs Vital Signs: Temp Pulse Pulse Resp BP BP Pulse Ox 02/21/19 03:21 37.0 C 83 18 108/63 02/21/19 03:00 18 94 02/21/19 02:00 18 94 02/21/19 01:00 18 96 02/21/19 00:00 18 94 02/20/19 23:54 36.7 C 100 H 18 102/53 L 02/20/19 23:45 18 94 02/20/19 22:15 20 94 02/20/19 21:40 18 94 02/20/19 20:40 36.8 C 81 20 106/66 95 02/20/19 19:15 22 95 02/20/19 18:00 20 95 02/20/19 16:50 22 94 02/20/19 15:50 36.7 C 76 22 107/65 95 02/20/19 15:39 80 96 02/20/19 15:34 82 97 02/20/19 15:29 80 97 02/20/19 15:24 83 97 02/20/19 15:19 95 H 97 02/20/19 15:14 87 97 02/20/19 15:09 86 98 02/20/19 15:04 87 97 02/20/19 15:00 36.7 C 16 96 02/20/19 14:59 82 98 02/20/19 14:54 82 97 02/20/19 14:49 74 95 02/20/19 14:45 75 130/58 L 02/20/19 14:44 74 96 02/20/19 14:39 86 96 02/20/19 14:34 74 96 02/20/19 14:30 18 96 02/20/19 14:29 72 94 02/20/19 14:24 76 94 02/20/19 14:19 78 95 02/20/19 14:14 87 94 02/20/19 14:09 79 95 02/20/19 14:04 78 93 02/20/19 13:59 83 95 02/20/19 13:54 86 95 02/20/19 13:49 74 94 02/20/19 13:46 82 94 02/20/19 13:44 82 95 02/20/19 13:39 82 94 02/20/19 13:34 87 94 02/20/19 13:33 78 94 02/20/19 13:30 18 98 02/20/19 13:29 79 95 02/20/19 13:28 77 94 02/20/19 13:24 79 95 02/20/19 13:07 36.7 C 18 02/20/19 13:05 67 112/58 L 02/20/19 13:01 74 96 02/20/19 12:56 74 97 02/20/19 12:55 104 H 95/66 L 02/20/19 12:51 74 96 02/20/19 12:46 63 97 02/20/19 12:44 79 114/61 02/20/19 12:41 66 98 02/20/19 12:36 73 97 02/20/19 12:35 36.3 C L 68 18 111/56 L 96 02/20/19 12:31 76 97 02/20/19 12:26 67 96 02/20/19 12:21 81 96 02/20/19 12:19 70 94 02/20/19 12:16 69 99 02/20/19 12:15 70 126/59 L 02/20/19 12:11 72 100 02/20/19 12:06 69 96 02/20/19 12:05 134 H 115/58 L 02/20/19 12:01 65 96 02/20/19 11:56 69 120/58 L 98 02/20/19 11:51 65 97 02/20/19 11:46 66 108/58 L 97 02/20/19 11:41 68 97 02/20/19 11:36 69 98 02/20/19 11:34 81 115/57 L 02/20/19 11:31 64 96 02/20/19 11:26 64 98 02/20/19 11:25 36.3 C L 60 20 111/54 L 02/20/19 11:21 64 98 02/20/19 11:16 66 97 02/20/19 11:15 58 L 119/57 L 02/20/19 11:11 64 97 02/20/19 11:06 61 97 02/20/19 11:05 65 118/60 02/20/19 11:01 63 97 02/20/19 10:56 62 97 02/20/19 10:55 61 115/68 02/20/19 10:51 63 95 02/20/19 10:50 18 02/20/19 10:46 62 97 02/20/19 10:45 63 114/61 02/20/19 10:41 66 96 02/20/19 10:36 84 99 02/20/19 10:35 65 114/73 02/20/19 10:31 74 100 02/20/19 10:26 62 98 02/20/19 10:25 73 109/68 02/20/19 10:21 66 99 02/20/19 10:20 36.3 C L 18 02/20/19 10:16 64 99 02/20/19 10:15 78 118/62 02/20/19 10:11 74 100 02/20/19 10:08 109 H 92 02/20/19 10:06 65 98 02/20/19 10:05 55 L 16 116/57 L 02/20/19 10:01 63 97 02/20/19 10:00 63 97 02/20/19 09:56 68 100/53 L 96 02/20/19 09:51 62 96 02/20/19 09:50 16 02/20/19 09:46 63 98 02/20/19 09:45 79 111/58 L 02/20/19 09:42 66 89 L 02/20/19 09:41 68 97 02/20/19 09:40 18 02/20/19 09:36 66 97 02/20/19 09:35 67 102/55 L 02/20/19 09:31 70 99 02/20/19 09:30 68 100/53 L 96 02/20/19 09:26 71 97 02/20/19 09:25 70 99/52 L 02/20/19 09:20 36.3 C L 18 Pulse Ox 02/21/19 03:21 02/21/19 03:00 02/21/19 02:00 02/21/19 01:00 02/21/19 00:00 02/20/19 23:54 02/20/19 23:45 02/20/19 22:15 02/20/19 21:40 02/20/19 20:40 02/20/19 19:15 02/20/19 18:00 02/20/19 16:50 02/20/19 15:50 95 02/20/19 15:39 02/20/19 15:34 02/20/19 15:29 02/20/19 15:24 02/20/19 15:19 02/20/19 15:14 02/20/19 15:09 02/20/19 15:04 02/20/19 15:00 02/20/19 14:59 02/20/19 14:54 02/20/19 14:49 02/20/19 14:45 02/20/19 14:44 02/20/19 14:39 02/20/19 14:34 02/20/19 14:30 02/20/19 14:29 02/20/19 14:24 02/20/19 14:19 02/20/19 14:14 02/20/19 14:09 02/20/19 14:04 02/20/19 13:59 02/20/19 13:54 02/20/19 13:49 02/20/19 13:46 02/20/19 13:44 02/20/19 13:39 02/20/19 13:34 02/20/19 13:33 02/20/19 13:30 02/20/19 13:29 02/20/19 13:28 02/20/19 13:24 02/20/19 13:07 02/20/19 13:05 02/20/19 13:01 02/20/19 12:56 02/20/19 12:55 02/20/19 12:51 02/20/19 12:46 02/20/19 12:44 02/20/19 12:41 02/20/19 12:36 02/20/19 12:35 02/20/19 12:31 02/20/19 12:26 02/20/19 12:21 02/20/19 12:19 02/20/19 12:16 02/20/19 12:15 02/20/19 12:11 02/20/19 12:06 02/20/19 12:05 02/20/19 12:01 02/20/19 11:56 02/20/19 11:51 02/20/19 11:46 02/20/19 11:41 02/20/19 11:36 02/20/19 11:34 02/20/19 11:31 02/20/19 11:26 02/20/19 11:25 02/20/19 11:21 02/20/19 11:16 02/20/19 11:15 02/20/19 11:11 02/20/19 11:06 02/20/19 11:05 02/20/19 11:01 02/20/19 10:56 02/20/19 10:55 02/20/19 10:51 02/20/19 10:50 02/20/19 10:46 02/20/19 10:45 02/20/19 10:41 02/20/19 10:36 02/20/19 10:35 02/20/19 10:31 02/20/19 10:26 02/20/19 10:25 02/20/19 10:21 02/20/19 10:20 02/20/19 10:16 02/20/19 10:15 02/20/19 10:11 02/20/19 10:08 02/20/19 10:06 02/20/19 10:05 02/20/19 10:01 02/20/19 10:00 02/20/19 09:56 02/20/19 09:51 02/20/19 09:50 02/20/19 09:46 02/20/19 09:45 02/20/19 09:42 02/20/19 09:41 02/20/19 09:40 02/20/19 09:36 02/20/19 09:35 02/20/19 09:31 02/20/19 09:30 02/20/19 09:26 02/20/19 09:25 02/20/19 09:20 Pain Intensity Lower Abdomen: Pain Intensity: 7 Notes Mental Status: alert / awake / arousable and participated in evaluation Patient Amnestic to Procedure: Yes Nausea / Vomiting: adequately controlled Pain: adequately controlled Airway Patency, RR, SpO2: stable & adequate BP & HR: stable & adequate Hydration State: stable & adequate Neuraxial Anesthesia: was administered and sensory block resolved Anesthetic Complications: no major complications apparent and Pt Satisfied with anesthetic care
[2019-02-21] MEDS: lamoTRIgine 100 MG TAB PO SCH ×3 (08:32→20:24)
[2019-02-21] MEDS: PRENATAL VITAMIN 1 TAB PO SCH (08:32)
[2019-02-21] MEDS: SIMETHICONE 80 MG CHEW PO SCH ×4 (08:32→20:23)
[2019-02-21] MEDS: DOCUSATE SODIUM 100 MG CAP PO SCH ×2 (08:32→20:24)
[2019-02-21] MEDS: FERROUS SULFATE 325 MG TAB PO SCH (08:35)
[2019-02-21] MEDS ORDERED: ZOLPIDEM TARTRATE 5 MG TAB PO PRN (09:17)
[2019-02-21] MEDS: ALPRAZolam 0.5 MG TABLET PO PRN ×2 (09:35→17:34)
[2019-02-21] MEDS ORDERED: OXYCODONE/ACETAMINOPHEN 5mg/325mg TAB PO PRN (10:30)
[2019-02-21] MEDS: IBUPROFEN 600 MG TAB PO PRN ×2 (12:01→16:51)
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
[2019-02-21] MEDS ORDERED: BISACODYL 5 MG TABEC PO SCH (20:00)
[2019-02-21] MEDS ORDERED: LITHIUM CARBONATE 300 MG TAB PO SCH (21:00)
[2019-02-22] MEDS: IBUPROFEN 600 MG TAB PO PRN ×3 (00:18→13:13)
[2019-02-22] MEDS ORDERED: DiphenhydrAMINE HCL 50 MG/ML VIAL IV PRN (03:06)
[2019-02-22] MEDS: OXYCODONE/ACETAMINOPHEN 5mg/325mg TAB PO PRN ×3 (03:43→13:14)
[2019-02-22 06:20] LABS: Hematocrit (blood only) 25.3 % (37-47); Hemoglobin 8.3 g/dL (12.0-16.0)
[2019-02-22] MEDS: ALPRAZolam 0.5 MG TABLET PO PRN (06:27)
--- NOTE | 2019-02-22 06:52 | Obstetrical Progress Note ---
Date of Service February 22, 2019 Assessment & Plan (1) Delivery by section of full-term infant: Doing well overall. Appreciate psych input. Started lithium and plan d/c on this. Has psych services set up outside, doesn't need anything. Continue routine pp care. Day #:: 2 Subjective Ambulation: ambulating normally Voiding: no voiding problems Passing Gas:: Yes Diet Tolerance:: regular diet Lochia:: Small Feeding Type:: breast feeding Pain fairly well controlled. Feels well. Notes mood is ok. Physical Exam Vital Signs (Past 24 Hours) Last Vital Signs Temp 36.7 C 02/22/19 00:00 Pulse 75 02/22/19 00:00 Resp 18 02/22/19 00:00 BP 119/70 02/22/19 00:00 Pulse Ox 99 02/22/19 00:00 Constitutional WD/WN, vitals as above Cardiovascular Extremities: no edema Gastrointestinal (Abdomen) soft, nt, nd, ff/nt at u
[2019-02-22] MEDS: PRENATAL VITAMIN 1 TAB PO SCH (08:55)
[2019-02-22] MEDS: lamoTRIgine 100 MG TAB PO SCH (08:56)
[2019-02-22] MEDS: GABAPENTIN 800 MG TAB PO SCH (08:56)
[2019-02-22] MEDS: DOCUSATE SODIUM 100 MG CAP PO SCH (09:01)
[2019-02-22] MEDS: FERROUS SULFATE 325 MG TAB PO SCH (09:06)
[2019-02-22] MEDS ORDERED: BISACODYL 10 MG SUPP PR PRN (09:18)
[2019-02-22] MEDS: SIMETHICONE 80 MG CHEW PO SCH ×2 (09:24→13:16)
--- NOTE | 2019-02-22 11:28 | Obstetrical Progress Note ---
Date of Service February 22, 2019 Assessment & Plan (1) Delivery by section of full-term infant: POD 2. Stable for discharge. - Follow-up visit for incision check next week. Subjective Patient requesting discharge today. Meeting criteria for discharge. Baby has been cleared by Peds. Physical Exam Vital Signs (Past 24 Hours): Last Vital Signs Temp 36.7 C 02/22/19 00:00 Pulse 75 02/22/19 00:00 Resp 18 02/22/19 00:00 BP 119/70 02/22/19 00:00 Pulse Ox 99 02/22/19 00:00 Gastrointestinal (Abdomen): Incision: C/D/I
[2019-02-22 13:02] LABS: 7-Aminoclonaz, Confirm NEGATIVE NG/ML (CUTOFF=25); Hydro-Alp Ur, GC/MS 64 NG/ML (CUTOFF=25); Hydroxyethylflurazepam, Conf NEGATIVE NG/ML (CUTOFF=50); Hydroxytriazolam NEGATIVE NG/ML (CUTOFF=50); Lorazepam, Ur GC/MS NEGATIVE NG/ML (CUTOFF=50); Nordiazepam, Confirm NEGATIVE NG/ML (CUTOFF=50); Oxazepam Ur, GC/MS NEGATIVE NG/ML (CUTOFF=50); Temazepam, Confirm NEGATIVE NG/ML (CUTOFF=50)
--- NOTE | 2019-02-22 16:37 | Discharge Summary ---
PROCEDURES WHILE ADMITTED: Repeat low transverse section with bilateral tubal ligation and scar revision. ADMITTING ATTENDING: Armaan Davis MD PROCEDURE ATTENDING: Armaan Davis MD DISCHARGE ATTENDING: Armaan Davis MD HOSPITAL COURSE: The patient was admitted for a scheduled repeat low transverse section with bilateral tubal ligation. The procedure was without complication. The patient was transferred to care and continued to do well. The patient was stable for discharge on day #3. She had no complications during her postoperative course and was discharged home in stable condition. The patient will follow up in clinic in 1 week for incision check due to her prior history of complicated wound infection following her prior . The patient was seen by social work, CYS and psychiatry during her hospital stay and was restarted on lithium, a prescription was provided for her prior to discharge.
--- NOTE | 2019-02-22 17:13 | Operative Report ---
DATE OF OPERATION: 02/20/2019 PROCEDURE: Repeat low transverse section with bilateral tubal ligation and revision of Pfannenstiel incision scar. SURGEON: Dr. Armaan Davis. PREOPERATIVE DIAGNOSES: 1. Single intrauterine at 39 weeks 2 days gestational age. 2. History of x1, desiring repeat. 3. History of preeclampsia. 4. History of substance abuse, independence. 5. History of complicated wound infection following prior . 6. Hypothyroidism. 7. Seizure disorder. 8. Bipolar I disorder. POSTOPERATIVE DIAGNOSES: 1. Single intrauterine at 39 weeks 2 days gestational age. 2. History of x1, desiring repeat. 3. History of preeclampsia. 4. History of substance abuse, independence. 5. History of complicated wound infection following prior . 6. Hypothyroidism. 7. Seizure disorder. 8. Bipolar I disorder. 9. Status post delivery. ESTIMATED BLOOD LOSS: 600 mL. DRAINS: Elkins. FLUIDS: Continuous lactated ringer. URINE OUTPUT: 250 mL. COMPLICATIONS: None. FINDINGS: Viable female with weight pending, Apgars of 8 and 9 at 1 and 5 minutes respectively. INDICATIONS: The patient is a 38-year-old G3, P1-0-1-1, admitted at 39 weeks 2 days gestational age for repeat section with bilateral tubal ligation and incision scar revision. Of note, the patient has a history of 1 prior section, desiring repeat. She also desired permanent sterilization. The patient did have a complicated wound infection following prior with significant scar tissue and retractions to the abdominal wound. The patient was offered a scar revision which the patient opted to proceed with. Consent reviewed and signed previously in clinic. DESCRIPTION OF PROCEDURE: The patient was taken to the Operating Room after consents were ensured. Upon presentation, she was properly identified. Spinal anesthesia was obtained without difficulty. The patient was then prepped and draped in normal sterile fashion. A preprocedural timeout was performed. The prior scar was demarcated with a pen in elliptical fashion. The scar was excised with the knife. The subcutaneous tissue was dissected to the underlying fascia with the Bovie. The fascia was then nicked at the midline with a knife. The fascial incision was then extended laterally in each direction with pickscott and Smith scissors. The superior aspect of the fascia was then grasped with Kochers x2, elevated off the underlying rectus muscles using blunt dissection. The inferior aspect of the fascia was grasped with Kochers x2, elevated off the underlying rectus muscle using blunt dissection. The midline was then entered bluntly. There was noted to be an adhesion of the anterior abdominal wall and bladder to the lower uterine segment. This was gently dissected with Metzenbaum scissors until the adhesion was clear. A bladder flap was then created with Metzenbaum scissors and pickups. Bladder blade was inserted. A low transverse uterine incision was then made with a knife. The uterus was then entered bluntly. Amniotic membranes were then ruptured with Allis. The head of the was noted to be in cephalic position, delivered through the hysterotomy without difficulty. Body and shoulders quickly followed. The was noted to be vigorous upon delivery and a 30-second delay cord clamping was initiated. The cord was then double clamped and cut. The was handed off to the awaiting nursery staff. A segment of cord blood was then obtained. Attention was then turned to delivery. Placenta was delivered intact with 3-vessel cord with gentle cord traction and uterine massage. The uterus was then exteriorized to maternal abdomen, wrapped in a wet lap and several passes were made inside with a dry lap to remove any remaining membranes and debris. The hysterotomy was then reapproximated with 0 Vicryl in continuous running locked suture. The hysterotomy was noted to be hemostatic. Attention was then turned to the tubal ligation portion of the procedure. A modified Margarito tubal ligation was performed bilaterally without complication. The tubal pedicles were noted to be hemostatic. Hysterotomy was reinspected and noted to be hemostatic. The posterior cul-de-sac was cleaned of clots and debris and the uterus was returned to maternal abdomen. Right and left pericolic gutters were cleaned of clots and debris. Hysterotomy was reinspected and noted to have continued hemostasis. The subcutaneous and fascial layers were inspected and noted to be hemostatic. The fascia was then reapproximated with 0 Vicryl continuous running suture. The subcutaneous layer was then reinspected. There are retraction bands and thick scar tissue from prior infections, were gently dissected to free the underlying bands. The subcutaneous layers were then reapproximated with plain in 2 layers. The skin was reapproximated with 4-0 Vicryl on a Adebayo needle. Needle, sponge and instrument counts were correct at completion of the case. I attest to the content of the Intraoperative Record and any orders documented therein. Any exception s are noted below.
== END 2019-02-22 14:05 | disposition home or self-care (01) | DRG 784 ==
LOC: 4S1 06:53 → EDSTATUS 08:50 → 4S2 15:50

== ENCOUNTER 2019-06-29 15:08 | Inpatient (IN) ==
[2019-06-29 15:26] LABS: Basophils # (auto) 0.01 K/uL (0-0.2); Basophils % (auto) 0.2 %; Eosinophils # (auto) 0.21 K/uL (0-0.5); Eosinophils % (auto) 3.7 %; Hematocrit (blood only) 35.7 % (37-47); Hemoglobin 11.8 g/dL (12.0-16.0); Lymphocytes # (auto) 2.85 K/uL (1.2-3.4); Lymphocytes % (auto) 49.7 %; Mean Corpuscular Hgb Conc 33.1 g/dL (32-36); Mean Platelet Volume 9.8 fL (7.4-10.4); Monocytes # (auto) 0.55 K/uL (0.11-0.59); Monocytes % (auto) 9.6 %; Neutrophils # (auto) 2.12 K/uL (1.4-6.5); Neutrophils % (auto) 36.8 %; Platelet Count 341 K/uL (130-400); RDW Coefficient of Variation 14.8 % (11.5-14.5); RDW Standard Deviation 46.3 fL (36.4-46.3); Red Blood Count 4.15 M/uL (4.2-5.4); White Blood Count 5.74 K/uL (4.8-10.8)
[2019-06-29] MEDS ORDERED: SODIUM CHLORIDE 0.9% 1000ML 1,000 ML IV SCH (15:30)
[2019-06-29 15:35] LABS: Prothrombin Time 10.3 Seconds (9.0-12.0)
[2019-06-29 15:43] LABS: Alanine Aminotransferase 103 U/L (12-78); Albumin Level 3.5 gm/dl (3.4-5.0); Aspartate Aminotransferase 66 U/L (15-37); BUN Creatinine Ratio 12.4 (10-20); Blood Urea Nitrogen 10 mg/dl (7-18); Calcium 8.5 mg/dl (8.5-10.1); Carbon Dioxide 26 mmol/L (21-32); Chloride 110 mmol/L (98-107); Est GFR (African American) 109.2; Est GFR (Non-African American) 94.2; Glucose 99 mg/dl (70-99); Potassium 3.7 mmol/L (3.5-5.1); Sodium 141 mmol/L (136-145)
--- NOTE | 2019-06-29 15:45 | XRay Report ---
SINGLE VIEW CHEST CLINICAL HISTORY: Generalized weakness. FINDINGS: An AP, portable, upright chest radiograph is compared to study dated 08/24/2018. The examina tion is degraded by portable technique and patient rotation. The cardiomediastinal silhouette is unr emarkable. There are low lung volumes with bibasilar atelectasis. The lungs and pleural spaces are ot herwise clear. No pneumothorax is seen. The bony thorax is grossly intact. IMPRESSION: Low lung volumes with no active disease in the chest. Electronically signed by: Drew Coronado M.D. 06/29/2019 3:43 PM
[2019-06-29 15:53] LABS: Alkaline Phosphatase 70 U/L (45-117); Bilirubin,Total 0.3 mg/dl (0.2-1); Creatine Kinase 127 U/L (26-192); Globulin 3.5 gm/dl (2.5-4.0); Troponin I < 0.015 ng/ml (0-0.045)
[2019-06-29 15:58] LABS: Acetaminophen < 2 ug/ml (10-30); Salicylate 2.6 mg/dl (2.8-20)
--- NOTE | 2019-06-29 17:40 | CT Scan Report ---
CT SCAN OF THE BRAIN WITHOUT IV CONTRAST CLINICAL HISTORY: Change in mental status. COMPARISON STUDY: CT of the brain dated 12/19/2018. TECHNIQUE: Unenhanced axial CT scan of the brain is performed from the vertex to the skull base. A d ose lowering technique was utilized adhering to the principles of ALARA. CT DOSE: 614.27 mGy.cm FINDINGS: Brain parenchyma: The brain parenchyma is normal in appearance. There is no hemorrhage, mass effect, or evidence of acute territorial ischemia by CT criteria. Caballero-white matter differentiation is preser sukh. No extra-axial fluid collection is seen. Ventricles, sulci, cisterns: Normal in configuration. Intracranial vasculature: The visualized intracranial vasculature at the skull base is normal in appe arance. Calvarium: Unremarkable. Sinuses and mastoids: There is moderate mucosal thickening within the right ethmoid sinuses. Mild muc osal thickening is present within the maxillary antra, with fluid seen on the right. The mastoid air cells are well pneumatized. Orbits: The bony orbits are grossly intact. IMPRESSION: There is no hemorrhage, mass effect, or evidence of acute territorial ischemia by CT jesusita roblero. Electronically signed by: Drew Coronado M.D. 06/29/2019 5:38 PM
[2019-06-29] MEDS ORDERED: NALOXONE HCL IV ONE (18:42)
[2019-06-29] MEDS ORDERED: NALOXONE HCL 0.4 MG/1 ML VIAL/CARP ONE (18:50)
[2019-06-29] MEDS ORDERED: NALOXONE HCL 0.4 MG/1 ML VIAL/CARP IV STA (19:19)
[2019-06-29] MEDS ORDERED: SODIUM CHLORIDE 0.9% 1000ML 1,000 ML IV ONE (19:19)
--- NOTE | 2019-06-29 20:05 | History & Physical Report ---
Date of Service June 29, 2019 Assessment & Plan (1) Overdose: Ms. Del Valle is a 38-year-old female who presents due to lethargy and respiratory depression after reported ingestion earlier today. Her sister and her father provide the history as patient is obtunded. They say that patient was given her pill box this morning as usual, which contains 1 day's worth of her medications which include buprenorphine-naloxone, Klonopin, citalopram, gabapentin, Lamictal, lithium, and Ambien. They say they witnessed her take the entire amount because the pill box was empty immediately after. Patient was on her way to her court date today where she faces incarceration for reportedly 3 months, was in the lobby of the court house at about 1 pm when she began to become lethargic, nodding her head and then becoming unresponsive. Sister notes that patient has struggled with addiction to various drugs including heroin for many years since her adolescence. She notes she has not mentioned any suicidal ideation, but wonders if this was a suicide attempt. ED course: Naloxone, fluids. Chest x-ray showed low lung volumes with no active disease. CT of the head unremarkable. Overdose -Ingested 1 day's worth of medications - up to total of: 81mg ASA, 24mg buprenorphine/6mg naloxone, 1.5 mg clonazepam, 20mg escitalopram, 3200mg gabapentin, 600mg lamotrigine, 300mg lithium, 10mg zolpidem. -EKG with sinus bradycardia, blood pressure is depressed -respiratory depression without hypoxia Plan: -monitor on telemetry - will need one to one in possibility of suicide attempt -continuous pulse ox -maintenance fluids running -nonurgent psychiatry consult placed -UDS pending -neuro checks QShift, aspiration/fall precautions FEN/GI: NPO with sips until can safely swallow. NSS @ 80ml/hr DVT ppx: heparin SQ CODE STATUS: FULL DISPO: tele - pending psych consult (2) Respiratory depression: continuous pulse ox (3) Bipolar 1 disorder: NPO until not obtunded - pending psych consult. Normally takes lamotrigine. 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 Is followed by [facility]. History of Present Illness Chief Complaint: Overdose Primary Care Provider: Felice Franco MD Ms. Del Valle is a 38-year-old female who presents due to lethargy and respiratory depression after reported ingestion earlier today. Her sister and her father provide the history as patient is obtunded. They say that patient was given her pill box this morning as usual, which contains 1 day's worth of her medications which include buprenorphine-naloxone, Klonopin, citalopram, gabapentin, Lamictal, lithium, and Ambien. They say they witnessed her take the entire amount because the pill box was empty immediately after. Patient was on her way to her court date today where she faces incarceration for reportedly 3 months, was in the lobby of the court house at about 1 pm when she began to be come lethargic, nodding her head and then becoming unresponsive. Sister notes that patient has struggled with addiction to various drugs including heroin for many years since her adolescence. She notes she has not mentioned any suicidal ideation, but wonders if this was a suicide attempt. ED course: Naloxone, fluids. Chest x-ray showed low lung volumes with no active disease. CT of the head unremarkable. PMH 1. Addiction - multiple inpatient rehab stays 2. Drug abuse 3. Bipolar 1 disorder -followed by [facility] 4. Psychogenic nonepileptic seizures or "pseudoseizures." PSH 1. x2 2. [place] teeth. 3. Tonsillectomy. 4. Diagnostic laparoscopy. SH Lives with her parents. They have custody of her 2 children 1 of which is 5 months old. Complicated social history. Allergies Allergy/AdvReac Type Severity Reaction Status Date / Time clindamycin Allergy Severe HIVES/TONGUE Verified 06/29/19 16:26 SWELLING Penicillins Allergy Severe RASH,BREATHING Verified 06/29/19 16:26 DIFFICULTY- CAN TAKE CEPHS. Sulfa (Sulfonamide Allergy Severe HIVES/DIFFICULTY Verified 06/29/19 16:26 Antibiotics) BREATHING (TO SULFA DRUGS) tramadol Allergy Severe HIVES Verified 06/29/19 16:26 azithromycin Allergy Intermediate Hives Verified 06/29/19 16:26 clarithromycin Allergy Intermediate HIVES-HAS Verified 06/29/19 16:26 TAKEN AZITHROMYCIN W/O PROBLEM erythromycin base Allergy Intermediate Hives Verified 06/29/19 16:26 fosphenytoin Allergy Intermediate burning Verified 06/29/19 16:26 and itching all over ketorolac Allergy Intermediate rash Verified 06/29/19 16:26 mivacurium Allergy Intermediate RASH/ITCHIN Verified 06/29/19 16:26 ESS valproic acid Allergy Mild Hair loss Verified 06/29/19 16:26 and weight gain. cefaclor [From Ceclor] Allergy Unknown Unknown Verified 06/29/19 16:26 sulfabenzamide Allergy Unknown Unknown Verified 06/29/19 16:26 Home Medications Home Medications Medication Instructions Recorded Confirmed Type gabapentin [Neurontin] 800 mg PO QID 12/19/18 06/29/19 History zolpidem [Ambien] 10 mg PO HS 12/19/18 06/29/19 History lamotrigine [Lamictal] 200 mg PO TID 02/20/19 06/29/19 History lithium carbonate 300 mg tablet 300 mg PO HS tab 06/12/19 06/29/19 History medroxyprogesterone 150 mg/mL 150 mg IM .Q3 MONTHS #1 ml 06/12/19 06/29/19 History intramuscular syringe aspirin 81 mg tablet,delayed 81 mg PO DAILY 06/13/19 06/29/19 History release buprenorphine 8 mg-naloxone 2 mg 1 ea SL TID 06/13/19 06/29/19 History sublingual film clonazepam 0.5 mg tablet 0.5 mg PO TID 06/13/19 06/29/19 History escitalopram 20 mg tablet 20 mg PO HS 06/13/19 06/29/19 History Past Med/Surg History Medical History Anemia Anxiety Bipolar disorder Convulsions "PSYCHOGENIC NON-EPILEPTIC SEIZURES" PER NEURO Endometriosis Gout Hearing deficit RIGHT EAR History of kidney stones History of migraine History of ovarian cyst History of pre-eclampsia WITH 2007 , ON ASA WITH CURRENT NO BP ISSUES WITH CURRENT Seizures Last Seziure was 02/04/2019 Spinal stenosis Surgical History History of section History of colonoscopy History of laparoscopy History of sinus surgery X2 History of tonsillectomy History of wisdom tooth extraction Previous section Family History Mother Kidney stones Social History Preferred Language: Salvadorean Communication Ability: Impaired Beliefs That Will Affect Care: None marital status: Single marital status details: has a young daughter Current Living Situation: Family current occupational status: unemployed Feels Safe at Home: Yes Smoking Status: Current every day smoker Tobacco Type: cigarettes Cigarettes Per Day: <1/4 PPD; 3-4PPD TOTAL X 20+ YEARS Second Hand Exposure: No Hx Alcohol Use: No (unable to assess) Hx Substance Use: Yes (unable to assess) substance use type: methamphetamine Substance Use Type Other:: previous heroin addiction Review of Systems Review of Systems: Unobtainable due to cognitive status Physical Exam Physical Exam: Vitals noted and within normal limits with the exception of hypotension, bradycardia. GENERAL: Obtunded, laying in bed, snoring. HENT: Normocephalic, atraumatic. Mucus membranes appear dry. EYES: Normal conjunctiva. Sclera non-icteric. EOMI. PERRLA. Pupil size wnl ~4mm bilaterally. RESPIRATORY: Clear to auscultation. Normal work of breathing. CARDIAC: Regular rate, normal rhythm. Extremities warm and well perfused, 2+ radial pulses bilaterally; 2+ posterior tibialis pulses bilaterally. ABDOMEN: Soft, non-distended. Bowel sounds are normal. LOWER EXTREMITIES: Inspection of calves reveal equal size bilaterally. No edema. No discoloration. NEURO: Obtunded. + sternal rub. SKIN: Rash not present. No jaundice noted. Significant lesions not present. PSYCH: Obtunded. Patient's sister and father at the bedside. Exam as done by Lorie Arana MD, Service Desk Lead. Results & Data Vital Signs (Past 12 Hours) Vital Signs Pulse Resp BP Pulse Ox 06/29/19 19:10 53 L 16 100 06/29/19 19:00 55 L 14 88/68 L 100 06/29/19 18:50 52 L 16 95 06/29/19 18:40 51 L 15 100 06/29/19 18:30 54 L 15 91/57 L 91 06/29/19 18:20 51 L 16 91 06/29/19 18:10 51 L 17 91 06/29/19 18:00 50 L 16 92/49 L 88 L 06/29/19 17:50 51 L 15 90 06/29/19 17:40 51 L 14 06/29/19 17:30 53 L 17 92/52 L 06/29/19 17:28 52 L 18 06/29/19 17:10 50 L 14 95 06/29/19 17:00 51 L 17 104/60 100 06/29/19 16:50 47 L 14 06/29/19 16:40 49 L 16 06/29/19 16:30 51 L 16 96/60 L 100 06/29/19 16:20 52 L 16 100 06/29/19 16:10 53 L 16 06/29/19 16:00 54 L 15 97/54 L 99 06/29/19 15:50 55 L 14 99 06/29/19 15:40 53 L 12 99 06/29/19 15:30 58 L 14 87/46 L 96 06/29/19 15:29 59 L 15 95 06/29/19 15:21 58 L 17 98/54 L 95 06/29/19 15:13 58 L 17 98/54 L 94 Laboratory Results 06/29/19 06/29/19 06/29/19 Range/Units 18:22 15:45 15:03 WBC (4.8-10.8) K/uL RBC (4.2-5.4) M/uL Hgb (12.0-16.0) g/dL Hct (37-47) % MCV (80-100) fL MCH (25-34) pg MCHC (32-36) g/dL RDW Std Deviation (36.4-46.3) fL RDW Coeff of Mira (11.5-14.5) % Plt Count (130-400) K/uL MPV (7.4-10.4) fL Immature Gran % (Auto) % Neut % (Auto) % Lymph % (Auto) % [place] % (Auto) % Eos % (Auto) % Baso % (Auto) % Immature Gran # (Auto) (0.00-0.02) K/uL Neut # (Auto) (1.4-6.5) K/uL Lymph # (Auto) (1.2-3.4) K/uL Warren # (Auto) (0.11-0.59) K/uL Eos # (Auto) (0-0.5) K/uL Baso # (Auto) (0-0.2) K/uL PT (9.0-12.0) Seconds INR (0.9-1.1) Sodium (136-145) mmol/L Potassium (3.5-5.1) mmol/L Chloride (98-107) mmol/L Carbon Dioxide (21-32) mmol/L Anion Gap (3-11) BUN (7-18) mg/dl Creatinine (0.6-1.2) mg/dl Est Cr Clr Drug Dosing Est GFR ( Amer) Est GFR (Non-Af Amer) BUN/Creatinine Ratio (10-20) Glucose (70-99) mg/dl Calcium (8.5-10.1) mg/dl Total Bilirubin (0.2-1) mg/dl AST (15-37) U/L ALT (12-78) U/L Alkaline Phosphatase (45-117) U/L Total Creatine Kinase (26-192) U/L Troponin I (0-0.045) ng/ml Total Protein (6.4-8.2) gm/dl Albumin (3.4-5.0) gm/dl Globulin (2.5-4.0) gm/dl Albumin/Globulin Ratio (0.9-2) TSH (0.300-4.500) uIu/ml Salicylates 2.6 L (2.8-20) mg/dl Acetaminophen < 2 L (10-30) ug/ml [place] 0.3 L (0.6-1.2) mmol/L Ethyl Alcohol mg/dL < 3.0 (0-3) mg/dl 06/29/19 06/29/19 06/29/19 Range/Units 15:03 15:03 15:03 WBC 5.74 (4.8-10.8) K/uL RBC 4.15 L (4.2-5.4) M/uL Hgb 11.8 L (12.0-16.0) g/dL Hct 35.7 L (37-47) % MCV 86.0 (80-100) fL MCH 28.4 (25-34) pg MCHC 33.1 (32-36) g/dL RDW Std Deviation 46.3 (36.4-46.3) fL RDW Coeff of Mira 14.8 H (11.5-14.5) % Plt Count 341 (130-400) K/uL MPV 9.8 (7.4-10.4) fL Immature Gran % (Auto) 0.0 % Neut % (Auto) 36.8 % Lymph % (Auto) 49.7 % [place] % (Auto) 9.6 % Eos % (Auto) 3.7 % Baso % (Auto) 0.2 % Immature Gran # (Auto) 0.00 (0.00-0.02) K/uL Neut # (Auto) 2.12 (1.4-6.5) K/uL Lymph # (Auto) 2.85 (1.2-3.4) K/uL [place] # (Auto) 0.55 (0.11-0.59) K/uL Eos # (Auto) 0.21 (0-0.5) K/uL Baso # (Auto) 0.01 (0-0.2) K/uL PT 10.3 (9.0-12.0) Seconds INR 1.0 (0.9-1.1) Sodium 141 (136-145) mmol/L Potassium 3.7 (3.5-5.1) mmol/L Chloride 110 H (98-107) mmol/L Carbon Dioxide 26 (21-32) mmol/L Anion Gap 5.0 (3-11) BUN 10 (7-18) mg/dl Creatinine 0.80 (0.6-1.2) mg/dl Est Cr Clr Drug Dosing Not Reportable Est GFR ( Amer) 109.2 Est GFR (Non-Af Amer) 94.2 BUN/Creatinine Ratio 12.4 (10-20) Glucose 99 (70-99) mg/dl Calcium 8.5 (8.5-10.1) mg/dl Total Bilirubin 0.3 (0.2-1) mg/dl AST 66 H (15-37) U/L ALT 103 H (12-78) U/L Alkaline Phosphatase 70 (45-117) U/L Total Creatine Kinase 127 (26-192) U/L Troponin I < 0.015 (0-0.045) ng/ml Total Protein 7.0 (6.4-8.2) gm/dl Albumin 3.5 (3.4-5.0) gm/dl Globulin 3.5 (2.5-4.0) gm/dl Albumin/Globulin Ratio 1.0 (0.9-2) TSH 1.640 (0.300-4.500) uIu/ml Salicylates (2.8-20) mg/dl Acetaminophen (10-30) ug/ml [place] (0.6-1.2) mmol/L Ethyl Alcohol mg/dL (0-3) mg/dl Supervising Physician Co-Signing Physician Notes Pt seen/examined in conjunction with resident MD Levon Arana. Orders and plan of admission formulated with resident. 26 y/o F Hx polysubstance abuse, depression, bipolar. She was apparently sentenced to retirement today and proceeded to take several of her medications at once. These include buprenorphine-naloxone, Klonopin, citalopram, gabapentin, Lamictal, lithium, and Ambien. She presents with AMS and lethargy. She is somnolent on admission and an ROS cannot be obtained. OE: Somnolent - pupils equal S1,2 R CTA on limited effort NT, NT No CCE Full neuro exam deferred P: Observation only, IVF, 02 protocol Hold all meds and consult psychiatry PG Care Time/CCT Total # of Minutes Spent Total Time Spent with Patient: Total time spent is greater than 50% in coordination of care (as documented) at patient's floor/unit and/or counseling patient: Resident Activity Tracking Resident Involvement: Resident Care Provided Care Provided: Adult Hospital Medicine
--- NOTE | 2019-06-29 21:09 | Emergency Department Note ---
Entered by Flora Delgado acting as a scribe for Baljeet De La Torre DO History of Present Illness General Chief complaint: Lethargic Stated complaint: SEIZURE, LETHARGIC Time Seen by Provider: 06/29/19 15:09 Source: patient Mode of arrival: EMS Limitations: altered mental status History of Present Illness Onset (ago): hour(s) 2 Location: head Radiation: non-radiation Pain Consistency: + constant Relieved By: + none Exacerbated By: + none Associated symptoms: + other (-diarrhea, -change in vision); no headaches, no nausea/vomiting and no shortness of breath Treatments prior to arrival: none The patient is a 38 year old female with a PMHX of polysubstance abuse, seizure disorder, and bipolar disorder who presents to the ED with complaints of a possible seizure. She was brought to the ED via EMS. EMS states she was at the local court house for a DUI hearing when she started displaying seizure like activity. The patient has a history of heroin abuse and states she is on Suboxone. She denies using any other drugs or alcohol today and states the last time she used heroin was 3 years ago. She denies any recent headache, change in vision, chest pain, shortness of breath, nausea, vomiting or diarrhea. Home Medications Home Medications Medication Instructions Recorded Confirmed Type gabapentin [Neurontin] 800 mg PO QID 12/19/18 06/29/19 History zolpidem [Ambien] 10 mg PO HS 12/19/18 06/29/19 History lamotrigine [Lamictal] 200 mg PO TID 02/20/19 06/29/19 History lithium carbonate 300 mg tablet 300 mg PO HS tab 06/12/19 06/29/19 History medroxyprogesterone 150 mg/mL 150 mg IM .Q3 MONTHS #1 ml 06/12/19 06/29/19 History intramuscular syringe aspirin 81 mg tablet,delayed 81 mg PO DAILY 06/13/19 06/29/19 History release buprenorphine 8 mg-naloxone 2 mg 1 ea SL TID 06/13/19 06/29/19 History sublingual film clonazepam 0.5 mg tablet 0.5 mg PO TID 06/13/19 06/29/19 History escitalopram 20 mg tablet 20 mg PO HS 06/13/19 06/29/19 History Allergies Allergy/AdvReac Type Severity Reaction Status Date / Time clindamycin Allergy Severe HIVES/TONGUE Verified 06/29/19 16:26 SWELLING Penicillins Allergy Severe RASH,BREATHING Verified 06/29/19 16:26 DIFFICULTY- CAN TAKE CEPHS. Sulfa (Sulfonamide Allergy Severe HIVES/DIFFICULTY Verified 06/29/19 16:26 Antibiotics) BREATHING (TO SULFA DRUGS) tramadol Allergy Severe HIVES Verified 06/29/19 16:26 azithromycin Allergy Intermediate Hives Verified 06/29/19 16:26 clarithromycin Allergy Intermediate HIVES-HAS Verified 06/29/19 16:26 TAKEN AZITHROMYCIN W/O PROBLEM erythromycin base Allergy Intermediate Hives Verified 06/29/19 16:26 fosphenytoin Allergy Intermediate burning Verified 06/29/19 16:26 and itching all over ketorolac Allergy Intermediate rash Verified 06/29/19 16:26 mivacurium Allergy Intermediate RASH/ITCHIN Verified 06/29/19 16:26 ESS valproic acid Allergy Mild Hair loss Verified 06/29/19 16:26 and weight gain. cefaclor [From Ceclor] Allergy Unknown Unknown Verified 06/29/19 16:26 sulfabenzamide Allergy Unknown Unknown Verified 06/29/19 16:26 Past Med/Surg History Medical History Anemia Anxiety Bipolar disorder Convulsions "PSYCHOGENIC NON-EPILEPTIC SEIZURES" PER NEURO Endometriosis Gout Hearing deficit RIGHT EAR History of kidney stones History of migraine History of ovarian cyst History of pre-eclampsia WITH 2007 , ON ASA WITH CURRENT NO BP ISSUES WITH CURRENT Seizures Last Seziure was 02/04/2019 Spinal stenosis Surgical History History of section History of colonoscopy History of laparoscopy History of sinus surgery X2 History of tonsillectomy History of wisdom tooth extraction Previous section Family History Mother Kidney stones Social History Preferred Language: Filipino Communication Ability: Effective Beliefs That Will Affect Care: None marital status: Single marital status details: has a young daughter Current Living Situation: Parent current occupational status: unemployed Feels Safe at Home: Yes Smoking Status: Unknown if ever smoked Hx Alcohol Use: No Hx Substance Use: Yes substance use type: methamphetamine Substance Use Type Other:: HEROIN - LAST USED 12 YEARS AGO Review of Systems See HPI for pertinent positives & negatives. and A total of 10 systems reviewed and were otherwise negative Physical Exam Vital Signs Vital Signs - 24 hr 06/29/19 15:13 06/29/19 15:21 06/29/19 15:29 Sepsis Recent Fever Within 48 Hours No Sepsis New/Unexplained Change in Mental Status No Sepsis Action Taken by Nursing No Action Required Pulse Rate 58 L 58 L 59 L Pulse Rate from SpO2 Sensor 58 L 62 Respiratory Rate 17 17 15 Respiratory Effort / Characteristics Non-Labored Spontaneous Respiratory Depth Normal Respiratory Pattern Regular Blood Pressure 98/54 L 98/54 L Blood Pressure Mean 68 68 Pulse Oximetry 94 95 95 Oxygen Delivery Method Room Air 06/29/19 15:30 06/29/19 15:40 06/29/19 15:50 Sepsis Recent Fever Within 48 Hours Sepsis New/Unexplained Change in Mental Status Sepsis Action Taken by Nursing Pulse Rate 58 L 53 L 55 L Pulse Rate from SpO2 Sensor 58 L 54 L 55 L Respiratory Rate 14 12 14 Respiratory Effort / Characteristics Respiratory Depth Respiratory Pattern Blood Pressure 87/46 L Blood Pressure Mean 59 Pulse Oximetry 96 99 99 Oxygen Delivery Method 06/29/19 16:00 06/29/19 16:10 06/29/19 16:20 Sepsis Recent Fever Within 48 Hours Sepsis New/Unexplained Change in Mental Status Sepsis Action Taken by Nursing Pulse Rate 54 L 53 L 52 L Pulse Rate from SpO2 Sensor 55 L 53 L 53 L Respiratory Rate 15 16 16 Respiratory Effort / Characteristics Respiratory Depth Respiratory Pattern Blood Pressure 97/54 L Blood Pressure Mean 68 Pulse Oximetry 99 100 100 Oxygen Delivery Method 06/29/19 16:30 06/29/19 16:40 06/29/19 16:50 Sepsis Recent Fever Within 48 Hours Sepsis New/Unexplained Change in Mental Status Sepsis Action Taken by Nursing Pulse Rate 51 L 49 L 47 L Pulse Rate from SpO2 Sensor 51 L 48 L 48 L Respiratory Rate 16 16 14 Respiratory Effort / Characteristics Respiratory Depth Respiratory Pattern Blood Pressure 96/60 L Blood Pressure Mean 72 Pulse Oximetry 100 100 100 Oxygen Delivery Method 06/29/19 17:00 06/29/19 17:10 06/29/19 17:28 Sepsis Recent Fever Within 48 Hours Sepsis New/Unexplained Change in Mental Status Sepsis Action Taken by Nursing Pulse Rate 51 L 50 L 52 L Pulse Rate from SpO2 Sensor 63 51 L Respiratory Rate 17 14 18 Respiratory Effort / Characteristics Respiratory Depth Respiratory Pattern Blood Pressure 104/60 Blood Pressure Mean 74 Pulse Oximetry 100 95 Oxygen Delivery Method 06/29/19 17:30 06/29/19 17:40 06/29/19 17:50 Sepsis Recent Fever Within 48 Hours Sepsis New/Unexplained Change in Mental Status Sepsis Action Taken by Nursing Pulse Rate 53 L 51 L 51 L Pulse Rate from SpO2 Sensor 57 L Respiratory Rate 17 14 15 Respiratory Effort / Characteristics Respiratory Depth Respiratory Pattern Blood Pressure 92/52 L Blood Pressure Mean 65 Pulse Oximetry 90 Oxygen Delivery Method 06/29/19 18:00 06/29/19 18:10 06/29/19 18:20 Sepsis Recent Fever Within 48 Hours Sepsis New/Unexplained Change in Mental Status Sepsis Action Taken by Nursing Pulse Rate 50 L 51 L 51 L Pulse Rate from SpO2 Sensor 90 50 L 52 L Respiratory Rate 16 17 16 Respiratory Effort / Characteristics Respiratory Depth Respiratory Pattern Blood Pressure 92/49 L Blood Pressure Mean 63 Pulse Oximetry 88 L 91 91 Oxygen Delivery Method 06/29/19 18:30 06/29/19 18:40 06/29/19 18:50 Sepsis Recent Fever Within 48 Hours Sepsis New/Unexplained Change in Mental Status Sepsis Action Taken by Nursing Pulse Rate 54 L 51 L 52 L Pulse Rate from SpO2 Sensor 62 51 L Respiratory Rate 15 15 16 Respiratory Effort / Characteristics Respiratory Depth Respiratory Pattern Blood Pressure 91/57 L Blood Pressure Mean 68 Pulse Oximetry 91 100 95 Oxygen Delivery Method 06/29/19 19:00 06/29/19 19:10 06/29/19 19:20 Sepsis Recent Fever Within 48 Hours Sepsis New/Unexplained Change in Mental Status Sepsis Action Taken by Nursing Pulse Rate 55 L 53 L 51 L Pulse Rate from SpO2 Sensor 56 L 53 L 50 L Respiratory Rate 14 16 14 Respiratory Effort / Characteristics Respiratory Depth Respiratory Pattern Blood Pressure 88/68 L Blood Pressure Mean 74 Pulse Oximetry 100 100 100 Oxygen Delivery Method 06/29/19 19:30 06/29/19 19:40 06/29/19 19:50 Sepsis Recent Fever Within 48 Hours Sepsis New/Unexplained Change in Mental Status Sepsis Action Taken by Nursing Pulse Rate 50 L 51 L 50 L Pulse Rate from SpO2 Sensor 52 L 51 L 51 L Respiratory Rate 14 15 15 Respiratory Effort / Characteristics Respiratory Depth Respiratory Pattern Blood Pressure 100/48 L Blood Pressure Mean 65 Pulse Oximetry 100 100 100 Oxygen Delivery Method 06/29/19 20:02 06/29/19 20:10 06/29/19 20:20 Sepsis Recent Fever Within 48 Hours Sepsis New/Unexplained Change in Mental Status Sepsis Action Taken by Nursing Pulse Rate 51 L 52 L 51 L Pulse Rate from SpO2 Sensor 54 L 54 L 51 L Respiratory Rate 16 17 16 Respiratory Effort / Characteristics Respiratory Depth Respiratory Pattern Blood Pressure Blood Pressure Mean Pulse Oximetry 100 92 100 Oxygen Delivery Method 06/29/19 20:30 06/29/19 20:40 Sepsis Recent Fever Within 48 Hours Sepsis New/Unexplained Change in Mental Status Sepsis Action Taken by Nursing Pulse Rate 46 L 46 L Pulse Rate from SpO2 Sensor 47 L 47 L Respiratory Rate 15 13 Respiratory Effort / Characteristics Respiratory Depth Respiratory Pattern Blood Pressure 101/58 L Blood Pressure Mean 72 Pulse Oximetry 100 100 Oxygen Delivery Method GENERAL: Patient is difficult to arouse, lethargic, ill-appearing, EYE EXAM: normal conjunctiva, pupils are 3 mm and reactive to light, EOM's g rossly intact. OROPHARYNX: no exudate, no erythema, lips, buccal mucosa, and tongue normal and mucous membranes are moist NECK: supple, no nuchal rigidity, no adenopathy, non-tender LUNGS: Clear to auscultation. Normal chest wall mechanics HEART: no murmurs, S1 normal and S2 normal ABDOMEN: abdomen soft, non-tender, normo-active bowel sounds, no masses, no rebound or guarding. BACK: Back is symmetrical on inspection and there is no deformity, no midline tenderness, no CVA tenderness. SKIN: no rashes and no bruising UPPER EXTREMITIES: upper extremities are grossly normal. LOWER EXTREMITIES: No pitting edema. NEURO EXAM: Patient is awake, alert and oriented to person, place but not year. Awakens to painful stimuli, able to partially sit up, no focal deficits, speech is slightly slurred as she is falling asleep. Course ED COURSE: Vital signs were reviewed and showed the patient is hypotensive. The patients medical record was reviewed The above diagnostic studies were performed and reviewed. ED treatments and interventions as stated above. 1511: The patient was evaluated in room A2. A complete history and physical examination was performed. 1554: I spoke to the patients Father. He states he took her into the court house today and thinks she may have taken extra medication today causing her symptoms. 1648: I reevaluated the patient. She is more awake and alert. Psychiatric Case Management is going to evaluate the patient. 1850: I reevaluated the patient. She awakens to a sternal rub. 0: I spoke with the patients sister. She believes the patient took multiple pills today as one of her medication bottles was empty. I reevaluated the patient and she was more lethargic and difficult to arouse. We gave her Narcan which caused slight improvement. I will discuss her case with the hospital medicine team. 1914: I made Dr. Naylor, [facility] Hospitalist, aware of the patient. She will be further evaluated. Based on the patients age, coexisting illnesses, exam and lab findings the decision to treat as an inpatient was made. The patient remained stable while under my care. The patient will be evaluated for further management. Administered Medications Discontinued Medications Sodium Chloride (Nss 1000ml) 1,000 mls @ 999 mls/hr IV .Q1H1M ROSS Stop: 06/29/19 16:30 Last Infusion: 06/29/19 16:29 Dose: 0 mls/hr Documented by: [id number] Admin: 06/29/19 15:28 Dose: 999 mls/hr Documented by: [id number] Naloxone HCl 0.8 mg/ Syringe 3.8 mls @ 1 mls/min IV ONE ONE Stop: 06/29/19 18:45 Last Admin: 06/29/19 19:03 Dose: Not Given Documented by: [id number] Sodium Chloride (Nss 1000ml) 1,000 mls @ 999 mls/hr IV .Q1H1M ONE Stop: 06/29/19 20:19 Last Infusion: 06/29/19 20:36 Dose: 0 mls/hr Documented by: [id number] Admin: 06/29/19 19:30 Dose: 999 mls/hr Documented by: [id number] Naloxone HCl (Narcan) Confirm Administered Dose 0.4 mg .ROUTE .STK-MED ONE Stop: 06/29/19 18:51 Last Admin: 06/29/19 18:54 Dose: 0.4 mg Documented by: [id number] Naloxone HCl (Narcan) 0.4 mg IV NOW STA Stop: 06/29/19 19:20 Last Admin: 06/29/19 19:30 Dose: 0.4 mg Documented by: [id number] Medical Decision Making Differential Diagnosis Differential diagnosis includes etiologies such as infection, hypoglycemia, electrolyte abnormalities, cardiac sources, intracerebral event, trauma, toxicologic, neurologic, as well as others were entertained. Medical Records Attestation: I reviewed the patient's medical records. Home Medications Current Medication List: was personally reviewed by me Laboratory Data Attestation: I reviewed the patient's lab results. Result diagrams: 06/29/19 15:03 06/29/19 15:03 Lab Results 06/29/19 06/29/19 06/29/19 Range/Units 15:03 15:03 15:03 WBC 5.74 (4.8-10.8) K/uL RBC 4.15 L (4.2-5.4) M/uL Hgb 11.8 L (12.0-16.0) g/dL Hct 35.7 L (37-47) % MCV 86.0 (80-100) fL MCH 28.4 (25-34) pg MCHC 33.1 (32-36) g/dL RDW Std Deviation 46.3 (36.4-46.3) fL RDW Coeff of Mira 14.8 H (11.5-14.5) % Plt Count 341 (130-400) K/uL MPV 9.8 (7.4-10.4) fL Immature Gran % (Auto) 0.0 % Neut % (Auto) 36.8 % Lymph % (Auto) 49.7 % Limestone % (Auto) 9.6 % Eos % (Auto) 3.7 % Baso % (Auto) 0.2 % Immature Gran # (Auto) 0.00 (0.00-0.02) K/uL Neut # (Auto) 2.12 (1.4-6.5) K/uL Lymph # (Auto) 2.85 (1.2-3.4) K/uL Limestone # (Auto) 0.55 (0.11-0.59) K/uL Eos # (Auto) 0.21 (0-0.5) K/uL Baso # (Auto) 0.01 (0-0.2) K/uL PT 10.3 (9.0-12.0) Seconds INR 1.0 (0.9-1.1) Sodium 141 (136-145) mmol/L Potassium 3.7 (3.5-5.1) mmol/L Chloride 110 H (98-107) mmol/L Carbon Dioxide 26 (21-32) mmol/L Anion Gap 5.0 (3-11) BUN 10 (7-18) mg/dl Creatinine 0.80 (0.6-1.2) mg/dl Est Cr Clr Drug Dosing Not Reportable Est GFR ( Amer) 109.2 Est GFR (Non-Af Amer) 94.2 BUN/Creatinine Ratio 12.4 (10-20) Glucose 99 (70-99) mg/dl Calcium 8.5 (8.5-10.1) mg/dl Total Bilirubin 0.3 (0.2-1) mg/dl AST 66 H (15-37) U/L ALT 103 H (12-78) U/L Alkaline Phosphatase 70 (45-117) U/L Total Creatine Kinase 127 (26-192) U/L Troponin I < 0.015 (0-0.045) ng/ml Total Protein 7.0 (6.4-8.2) gm/dl Albumin 3.5 (3.4-5.0) gm/dl Globulin 3.5 (2.5-4.0) gm/dl Albumin/Globulin Ratio 1.0 (0.9-2) TSH 1.640 (0.300-4.500) uIu/ml Salicylates (2.8-20) mg/dl Acetaminophen (10-30) ug/ml Hartselle (0.6-1.2) mmol/L Ethyl Alcohol mg/dL (0-3) mg/dl 06/29/19 06/29/19 06/29/19 Range/Units 15:03 15:45 18:22 WBC (4.8-10.8) K/uL RBC (4.2-5.4) M/uL Hgb (12.0-16.0) g/dL Hct (37-47) % MCV (80-100) fL MCH (25-34) pg MCHC (32-36) g/dL RDW Std Deviation (36.4-46.3) fL RDW Coeff of Mira (11.5-14.5) % Plt Count (130-400) K/uL MPV (7.4-10.4) fL Immature Gran % (Auto) % Neut % (Auto) % Lymph % (Auto) % Limestone % (Auto) % Eos % (Auto) % Baso % (Auto) % Immature Gran # (Auto) (0.00-0.02) K/uL Neut # (Auto) (1.4-6.5) K/uL Lymph # (Auto) (1.2-3.4) K/uL Limestone # (Auto) (0.11-0.59) K/uL Eos # (Auto) (0-0.5) K/uL Baso # (Auto) (0-0.2) K/uL PT (9.0-12.0) Seconds INR (0.9-1.1) Sodium (136-145) mmol/L Potassium (3.5-5.1) mmol/L Chloride (98-107) mmol/L Carbon Dioxide (21-32) mmol/L Anion Gap (3-11) BUN (7-18) mg/dl Creatinine (0.6-1.2) mg/dl Est Cr Clr Drug Dosing Est GFR ( Amer) Est GFR (Non-Af Amer) BUN/Creatinine Ratio (10-20) Glucose (70-99) mg/dl Calcium (8.5-10.1) mg/dl Total Bilirubin (0.2-1) mg/dl AST (15-37) U/L ALT (12-78) U/L Alkaline Phosphatase (45-117) U/L Total Creatine Kinase (26-192) U/L Troponin I (0-0.045) ng/ml Total Protein (6.4-8.2) gm/dl Albumin (3.4-5.0) gm/dl Globulin (2.5-4.0) gm/dl Albumin/Globulin Ratio (0.9-2) TSH (0.300-4.500) uIu/ml Salicylates 2.6 L (2.8-20) mg/dl Acetaminophen < 2 L (10-30) ug/ml Hartselle 0.3 L (0.6-1.2) mmol/L Ethyl Alcohol mg/dL < 3.0 (0-3) mg/dl Imaging Data Radiologist's Impression: Radiology results as stated below per my review and the radiologist's interpretation: SINGLE VIEW CHEST CLINICAL HISTORY: Generalized weakness. FINDINGS: An AP, portable, upright chest radiograph is compared to study dated 08/24/2018. The examination is degraded by portable technique and patient rotation. The cardiomediastinal silhouette is unremarkable. There are low lung volumes with bibasilar atelectasis. The lungs and pleural spaces are otherwise clear. No pneumothorax is seen. The bony thorax is grossly intact. IMPRESSION: Low lung volumes with no active disease in the chest. Electronically signed by: Drew Coronado M.D. 06/29/2019 3:[address] SCAN OF THE BRAIN WITHOUT IV CONTRAST CLINICAL HISTORY: Change in mental status. COMPARISON STUDY: CT of the brain dated 12/19/2018. TECHNIQUE: Unenhanced axial CT scan of the brain is performed from the vertex to the skull base. A dose lowering technique was utilized adhering to the principles of ALARA. CT DOSE: 614.27 mGy.cm FINDINGS: Brain parenchyma: The brain parenchyma is normal in appearance. There is no hemorrhage, mass effect, or evidence of acute territorial ischemia by CT criteria. Caballero-white matter differentiation is preserved. No extra-axial fluid collection is seen. Ventricles, sulci, cisterns: Normal in configuration. Intracranial vasculature: The visualized intracranial vasculature at the skull base is normal in appearance. Calvarium: Unremarkable. Sinuses and mastoids: There is moderate mucosal thickening within the right ethmoid sinuses. Mild mucosal thickening is present within the maxillary antra, with fluid seen on the right. The mastoid air cells are well pneumatized. Orbits: The bony orbits are grossly intact. IMPRESSION: There is no hemorrhage, mass effect, or evidence of acute territorial ischemia by CT criteria. Electronically signed by: Drew Coronado M.D. 06/29/2019 5:38 PM ECG Data Attestation: I personally reviewed and interpreted this ECG as follows: Indication: weakness Rate (beats per minute): 53 Rhythm: sinus bradycardia Findings: + other (normal axis); no PVC Blood Pressure Blood Pressure Findings: Low blood pressure MDM Narrative Patient is a 38-year-old female brought in from her sentencing for questionable seizure via EMS. They note that she laid down and closed her eyes and her eyes closed. There is no shaking. There is no trauma. IV was established and blood work was obtained. Labs showed no significant leukocytosis and a mild anemia at 11.8 thousand. INR is unremarkable. BMP was unremarkable. Mild transaminitis which is consistent with previous. Bilirubin was unremarkable. Troponin was no rmal. TSH was unremarkable. Salicylates was low and acetaminophen was undetectable. Hartselle was low as well. Alcohol was negative. EKG was nondiagnostic. CT head was negative. Chest x-ray per my review showed no focal infiltrate. On repeat evaluations patient became more lethargic and more d ifficult to arouse. She was given 2 separate dose of IV Narcan with limited improvement. Did not reverse with flumazenil at this time as she takes benzos chronically. Sister present at bedside and notes that the patient took all of her daily medications that she was given today by her mom. She is never given more than 1 days with her medications. Patient was given IV fluids as well. She is monitored closely. Family was updated bedside and she was discussed with the hospitalist and admitted. Her blood pressure did dip down to the low 80s at one point she was slightly bradycardic. Impression & Plan Overdose, Respiratory depression, Substance abuse, Chronically on benzodiazepine therapy, Polysubstance (excluding opioids) dependence, Altered mental status Critical Care Time Critical Care Time: Yes Total Critical Care Time: 35 I have personally spent 35 minutes of critical care time in the direct management of this patient. This includes bedside care, interpretation of diagnostic studies, and testing, discussion with consultants, patient, and family members, and other required patient management activities. This 35 minutes is in excess of all separately billable procedures. Discharge Plan Visit Data Chief Complaint: Lethargic Stated Complaint: SEIZURE, LETHARGIC ED Provider: Baljeet De La Torre Discharge Problem: Overdose, Respiratory depression, Substance abuse, Chronically on benzodiazepine therapy, Polysubstance (excluding opioids) dependence, Altered mental status Patient Disposition: Being Evaluated by Hospitalist Discharge Instructions Interventions: ED Discharge Assessment Last Done: 06/29/19 20:49 The scribe's documentation has been prepared under my direction and personally reviewed by me in its entirety. I confirm that the note above accurately reflects all work, treatment, procedures, and medical decision making performed by me.
[2019-06-29] MEDS ORDERED: ACETAMINOPHEN 325 MG TAB PO PRN (22:12)
[2019-06-29] MEDS ORDERED: POLYETHYLENE (MIRALAX) 17 GM PACK PO PRN (22:12)
[2019-06-29] MEDS ORDERED: ONDANSETRON INJ 2 MG/ML 2 ML VIAL IV PRN (22:12)
[2019-06-29] MEDS ORDERED: ALUMINUM/MAGNESIUM SUSP 30 ML UDC PO PRN (22:12)
[2019-06-29] MEDS ORDERED: MAGNESIUM HYDROXIDE SUSP 30 ML UDC PO PRN (22:12)
[2019-06-29] MEDS: SODIUM CHLORIDE 0.9% 1000ML 1,000 ML IV SCH (22:27)
[2019-06-29 23:04] LABS: Appearance Urine Clear (Clear); Bacteria Urine Automated Negative (Negative); Bilirubin Urine Negative (Negative); Blood Urine Negative (Negative); Color Urine Yellow; Epithelial Cell Urine Auto 0-5 /lpf (0-5); Glucose Urine UA Negative (Negative); Ketones Urine Negative (Negative); Leukocyte Esterase Urine 1+ (Negative); Nitrite Urine Negative (Negative); Protein Urine Negative (Negative); RBC Urine Automated 0-4 /hpf (0-4); Specific Gravity Urine 1.013 (1.000-1.030); Urobilinogen Urine Negative (Negative); pH Urine 6.5 (4.5-7.5)
[2019-06-29] MEDS: HEPARIN SOD 5,000 UNIT/0.5 ML VIAL SQ SCH (23:14)
[2019-06-29 23:20] LABS: Amphetamines+Metham, Urine Neg (Neg); Barbiturates, Urine Neg (Neg); Benzodiazepine, Urine Neg (Neg); Cocaine, Urine Neg (Neg); MDMA (Ecstacy), Urine Neg (Neg); Methadone, Urine Neg (Neg); Opiate, Urine Neg (Neg); Phencyclidine, Urine Neg (Neg)
[2019-06-30] MEDS: HEPARIN SOD 5,000 UNIT/0.5 ML VIAL SQ SCH ×3 (06:27→21:04)
[2019-06-30] MEDS: SODIUM CHLORIDE 0.9% 1000ML 1,000 ML IV SCH (10:29)
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
--- NOTE | 2019-06-30 15:58 | Family Medicine Progress Note ---
Date of Service June 30, 2019 Assessment & Plan (1) Overdose: 38 y/o F with h/o Bipolar ds and substance use ds presented with lethargy and respiratory depression after reported ingestion while on her way to her court date today where she faces incarceration for reportedly 3 months. Took 1 day's worth of her medications - 81mg ASA, 24mg buprenorphine/6mg naloxone, 1.5 mg clonazepam, 20mg escitalopram, 3200mg gabapentin, 600mg lamotrigine, 300mg lithium, 10mg zolpidem. Received Naloxone in ED. Multidrug Overdose -EKG with sinus bradycardia, BP systolic 100s. -[place] level on admission 0.3. -continue monitor on telemetry - one to one -psychiatry consult Respiratory depression on admission -resolved Bipolar 1 disorder: -Holding home meds. Resume once mentation clear pending psych input. FEN/GI: Regular diet. d/c IVF DVT ppx: heparin SQ CODE STATUS: FULL DISPO: tele (2) Respiratory depression: (3) Bipolar 1 disorder: Subjective unable to get any history from patient. per nurse - has been somnolent through most of the day Physical Exam Constitutional: WD/WN, vitals as above Somnolent. arouses to command for few seconds and falls back asleep Respiratory: normal respiratory effort, lungs clear to auscultation Cardiovascular: RRR, no murmur, no edema Results & Data Vital Signs (Past 12 Hours) Vital Signs Temp Pulse Resp BP BP Pulse Ox 06/30/19 14:36 36.7 C 57 L 18 102/65 94 06/30/19 10:52 37.1 C 41 L 16 98/52 L 95 06/30/19 07:00 37.0 C 45 L 14 87/49 L 95 PG Care Time/CCT Total # of Minutes Spent Total Time Spent with Patient: Total time spent is greater than 50% in coordination of care (as documented) at patient's floor/unit and/or counseling patient: (1) Overdose Encounter type: initial encounter Injury intent: undetermined intent Qualified Code(s): T50.904A - Poisoning by unspecified drugs, medicaments and biological substances, undetermined, initial encounter
[2019-07-01] MEDS: BUPRENORPHINE/NALOXONE 8/2 MG TAB SL SCH ×2 (00:46→09:07)
[2019-07-01] MEDS: HEPARIN SOD 5,000 UNIT/0.5 ML VIAL SQ SCH (06:48)
[2019-07-01 09:39] LABS: Albumin Level 2.9 gm/dl (3.4-5.0); BUN Creatinine Ratio 12.4 (10-20); Calcium 8.6 mg/dl (8.5-10.1); Est GFR (African American) 107.5; Est GFR (Non-African American) 92.8; Potassium 3.5 mmol/L (3.5-5.1)
[2019-07-01 09:41] LABS: Albumin Globulin Ratio 0.9 (0.9-2); Bilirubin,Total 0.3 mg/dl (0.2-1); Globulin 3.3 gm/dl (2.5-4.0); Total Protein 6.2 gm/dl (6.4-8.2)
[2019-07-01] MEDS ORDERED: ASPIRIN 81 MG ECTAB PO SCH (10:15)
--- NOTE | 2019-07-01 12:09 | Discharge Summary ---
Date of Service July 01, 2019 Admission HPI Per Admitting Provider Ms. Del Valle is a 38-year-old female who presents due to lethargy and respiratory depression after reported ingestion earlier today. Her sister and her father provide the history as patient is obtunded. They say that patient was given her pill box this morning as usual, which contains 1 day's worth of her medications which include buprenorphine-naloxone, Klonopin, citalopram, gabapentin, Lamictal, lithium, and Ambien. They say they witnessed her take the entire amount because the pill box was empty immediately after. Patient was on her way to her court date today where she faces incarceration for reportedly 3 months, was in the lobby of the court house at about 1 pm when she began to become lethargic, nodding her head and then becoming unresponsive. Sister notes that patient has struggled with addiction to various drugs including heroin for many years since her adolescence. She notes she has not mentioned any suicidal ideation, but wonders if this was a suicide attempt. Principal Diagnosis Multidrug overdose Discharge Exam Constitutional WD/WN, vitals as above Respiratory normal respiratory effort, lungs clear to auscultation Cardiovascular RRR, no murmur, no edema Gastrointestinal (Abdomen) normal bowel sounds, soft, nontender, no hepatosplenomegaly Skin no rashes, warm and dry Discharge Data Allergies Allergy/AdvReac Type Severity Reaction Status Date / Time clindamycin Allergy Severe HIVES/TONGUE Verified 06/29/19 16:26 SWELLING Penicillins Allergy Severe RASH,BREATHING Verified 06/29/19 16:26 DIFFICULTY- CAN TAKE CEPHS. Sulfa (Sulfonamide Allergy Severe HIVES/DIFFICULTY Verified 06/29/19 16:26 Antibiotics) BREATHING (TO SULFA DRUGS) tramadol Allergy Severe HIVES Verified 06/29/19 16:26 azithromycin Allergy Intermediate Hives Verified 06/29/19 16:26 clarithromycin Allergy Intermediate HIVES-HAS Verified 06/29/19 16:26 TAKEN AZITHROMYCIN W/O PROBLEM erythromycin base Allergy Intermediate Hives Verified 06/29/19 16:26 fosphenytoin Allergy Intermediate burning Verified 06/29/19 16:26 and itching all over ketorolac Allergy Intermediate rash Verified 06/29/19 16:26 mivacurium Allergy Intermediate RASH/ITCHIN Verified 06/29/19 16:26 ESS valproic acid Allergy Mild Hair loss Verified 08/01/19 16:26 and weight gain. cefaclor [From [facility]] Allergy Unknown Unknown Verified 06/29/19 16:26 sulfabenzamide Allergy Unknown Unknown Verified 06/29/19 16:26 Consultations 06/29/19 20:34 ED Decision to Admit Stat 06/29/19 22:12 Consult Case Management - Discharge Planning Routine Consult Psychiatry Routine Ordered Studies 06/29/19 17:09 CT head/brain wo con Stat Hospital Course (1) Overdose: 38 y/o F with h/o Bipolar ds and substance use ds presented with lethargy and respiratory depression after reported ingestion while on her way to her court date today where she faces incarceration for reportedly 3 months. Took 1 day's worth of her medications - 81mg ASA, 24mg buprenorphine/6mg naloxone, 1.5 mg clonazepam, 20mg escitalopram, 3200mg gabapentin, 600mg lamotrigine, 300mg lithium, 10mg zolpidem. Received Naloxone in ED. Multidrug Overdose -EKG with sinus bradycardia, BP systolic 100s. Normal QTc -[place] level on admission 0.3. -monitored on PCU. -psychiatry consulted - doesn't meet criteria for inpatient admission. Should have her medications locked - Mother will enforce that. should be weaned off of klonipine and ambien in preparation of [facility] Respiratory depression on admission -resolved Bipolar 1 disorder: -Home meds resumed. -[place] level on day of discharge - <0.2 (2) Respiratory depression: (3) Bipolar 1 disorder: Total Time Total Time Spent Total Time Spent (In Minutes): 35 Discharge Plan Discharge Items Patient Disposition: Home - Self-Care Reason For Visit: OVERDOSE Discharge Diagnosis: Drug Overdose Discharge Goals: Improve function Activity: Resume your previous activity Non-emergency contact: Primary Care Provider and Psychiatrist Call non-emergency contact if: you have any medication questions Follow-up/Referrals: Sadiq Franco MD [Primary Care Provider] - Diet: Regular Addtl Provider Instructions: Follow with your psychiatrist in a week You should have ambien and clonazepam weaned off - You should cut the dose of your klonopine to twice a day 0.5mgs twice a day for now and further as per Dr. Sow's recommendations. Prescriptions: Continued lithium carbonate 300 mg tablet 300 mg PO HS RF: 0 escitalopram oxalate 20 mg tablet 20 mg PO HS RF: 0 buprenorphine-naloxone [Suboxone] 8-2 mg film 1 ea SL TID RF: 0 clonazepam 0.5 mg tablet 0.5 mg PO TID RF: 0 aspirin 81 mg tablet,delayed release (DR/EC) 81 mg PO DAILY RF: 0 medroxyprogesterone 150 mg/mL syringe 150 mg IM UD Qty: 1 RF: 0 lamotrigine [Lamictal] 200 mg Tablet 200 mg PO TID RF: 0 gabapentin [Neurontin] 800 mg Tablet 800 mg PO QID RF: 0 zolpidem [Ambien] 10 mg Tablet 10 mg PO HS RF: 0 Stand-Alone Forms: [facility] Discharge Orders: Discharge Order (Routine); Ordered 07/01/19 Ordered By: Candace Llanos Admission Data Admit Date/Time: 06/29/19 20:08 Attending Provider: Candace Llanos Admit Provider: Lorie Arana Primary Care Provider: Sadiq Franco Other Providers: Segun Naylor ; Karena Lr Service: Telemetry Other Interventions: Discharge Summary Assessment (RN) Last Done: 07/01/19 11:35 DC Date/Time DO NOT enter until pt leaves facility: 07/01/19 12:32
--- NOTE | 2019-07-01 12:28 | Psychiatric Progress Note ---
Date of Service July 01, 2019 Impression / Recommendations Impression psychiatrically stable for discharge, there is no evidence of psychosis or mary interfering with her medical decision making. She declines voluntary admission and on collateral and repeat examinations, there is no evidence of acute suicidality that would support a 302. She would benefit from substance abuse treatment but won't enter voluntarily until after completes detention time. She has safety plan that includes spending time with family and secured meds leading up to her sentencing hearing. Plan: resume SSRI and lithium, d/c Ambien, Klonopin 0.5 mg BID to avoid withdrawal and taper to 0.5 mg prior to hearing as directed by Dr. Sow. Risk Factors Assessment Male: No : Yes Do You Have Access To A Gun?: No Health Problems: Yes Mental Health Diagnoses: Yes Substance Use Disorders: Yes Previous Attempt: Yes Previous Psychiatric Hospitalization: Yes Smoker: Yes Protective Factors Assessment [employer] Beliefs: No : No Responsible for Young Children: Yes Employed: No Interval History Chief Complaint seen as follow up to initial consult, case reviewed with Dr. Llanos. Review of Systems Notes deferred Subjective Subjective She continues to deny SI and is now medically cleared. She verbalizes a plan to return home and stay with her parents and children. Mother reports to staff concerns about substance use, perhaps taking extra benzodiazepines that aren't prescribed to her but reportedly understands that can't commit for substance use. That said, given stressor of pending detention time and circumstances around medical hospitalization, I did offer the patient inpatient psychiatric hospitalization pending her court appearance though would need to be an outside facility due to bed availability. She declined as she'd rather spend time with children. She is future focussed describing plans with mother/transportation to [facility] when she is on house arrest after the incarceration. "I just want to get it started", referring to sentencing/detention time. She is aware that controlled substances and likely bup will not be administered in detention and that our services does not support use of Ambien and Klonopin in combination with bup. Patient indicates that she spoke with Dr. oSw about how to taper Klonopin prior to incarceration. She is aware of risk of withdrawal seizures. Physical Exam Mental Examination alert, cooperative, speech normal in rate and volume. Thought processes are well organized. She denies SI/HI/smalls. Vital Signs (Past 24 Hours) Last Vital Signs Temp 36.9 C 07/01/19 11:35 Pulse 48 L 07/01/19 11:35 Resp 18 07/01/19 11:35 BP 92/54 L 07/01/19 11:35 Pulse Ox 94 07/01/19 11:35 Results & Data Laboratory Results Laboratory Results - last 24 hr 07/01/19 07/01/19 07/01/19 07:37 08:58 08:58 Sodium 140 Potassium 3.5 Chloride 109 H Carbon Dioxide 26 Anion Gap 5.0 BUN 10 Creatinine 0.81 Est Cr Clr Drug Dosing 95.0 Est GFR ( Amer) 107.5 Est GFR (Non-Af Amer) 92.8 BUN/Creatinine Ratio 12.4 Glucose 106 H POC Glucose 93 Calcium 8.6 Total Bilirubin 0.3 AST 40 H ALT 70 Alkaline Phosphatase 64 Total Protein 6.2 L Albumin 2.9 L Globulin 3.3 Albumin/Globulin Ratio 0.9 [place] < 0.2 L 07/01/19 11:35 Sodium Potassium Chloride Carbon Dioxide Anion Gap BUN Creatinine Est Cr Clr Drug Dosing Est GFR ( Amer) Est GFR (Non-Af Amer) BUN/Creatinine Ratio Glucose POC Glucose 121 H Calcium Total Bilirubin AST ALT Alkaline Phosphatase Total Protein Albumin Globulin Albumin/Globulin Ratio [place] Current Inpatient Medications Current Inpatient Medications: Current Inpatient Medications Acetaminophen (Tylenol) 650 mg PO Q4H PRN PRN Reason: Pain or Fever Stop: 07/29/19 22:11 Al Hydrox/Mg Hydrox/Simethicone (Maalox) 15 ml PO Q4H PRN PRN Reason: Dyspepsia Stop: 07/29/19 22:11 Aspirin (Ecotrin Ectab) 81 mg PO DAILY [facility] Stop: 07/31/19 10:14 Last Admin: 07/01/19 12:02 Dose: 81 mg Documented by: Buprenorphine/Naloxone (Suboxone 8 Mg/2 Mg) 1 tab SL TID [facility] Stop: 07/31/19 00:59 Last Admin: 07/01/19 09:07 Dose: 1 tab Documented by: Clonazepam (Klonopin) 0.5 mg PO TID [facility] Stop: 07/31/19 13:59 Escitalopram Oxalate (Lexapro Tab) 20 mg PO HS [facility] Stop: 07/31/19 20:59 Gabapentin (Neurontin) 800 mg PO QID [facility] Stop: 07/31/19 12:59 Heparin Sodium (Porcine) (Heparin Sodium (Porcine)) 5,000 units SQ Q8 ROSS Stop: 07/29/19 22:29 Last Admin: 07/01/19 06:48 Dose: Not Given Documented by: Lamotrigine (Lamictal) 200 mg PO TID [facility] Stop: 07/31/19 13:59 [place] Carbonate ([place] Carbonate) 300 mg PO HS [facility] Stop: 07/31/19 20:59 Magnesium Hydroxide (Milk Of Magnesia) 30 ml PO Q12H PRN PRN Reason: Constipation Stop: 07/29/19 22:11 Ondansetron HCl (Zofran) 4 mg IV Q6H PRN PRN Reason: Nausea Stop: 07/29/19 22:11 Polyethylene Glycol (Miralax Powder Packet) 17 gm PO DAILY PRN PRN Reason: Constipation Stop: 07/29/19 22:11 Zolpidem Tartrate (Ambien) 10 mg PO HS [facility] Stop: 07/31/19 20:59 CPT Code CPT Code 43084
[2019-07-01] MEDS ORDERED: GABAPENTIN 800 MG TAB PO SCH (13:00)
[2019-07-01] MEDS ORDERED: clonazePAM 0.5 MG TAB PO SCH (14:00)
[2019-07-01] MEDS ORDERED: lamoTRIgine 100 MG TAB PO SCH (14:00)
[2019-07-01] MEDS ORDERED: ESCITALOPRAM OXALATE 20 MG TAB PO SCH (21:00)
[2019-07-01] MEDS ORDERED: LITHIUM CARBONATE 300 MG TAB PO SCH (21:00)
[2019-07-01] MEDS ORDERED: ZOLPIDEM TARTRATE 10 MG TAB PO SCH (21:00)
== END 2019-07-01 12:32 | disposition home or self-care (01) | DRG 917 ==
LOC: ED 15:08 → 2S 20:08 → SUATTDRO 20:08 → 2S 20:49